=== PATIENT | female | born 1960 | race Caucasian/White ===

== ENCOUNTER → 2018-06-19 | Outpatient (CLI) | payer BC ==
--- NOTE | 2018-06-19 14:37 | P.GSHP ---
History of Present Illness H&P Date: 06/19/18 Patient presents status post cyst evaluation via radiology. Upon evaluation by Dr. Alicia the lesion in the right breast at 10:00 was felt to be best followed with 6 month follow-up. The lesion at 9:00 was aspirated and the cytology was benign. The lesion in the left breast at 12:00 is going to be followed as 6 months. The patient is doing well at this time. She has no complaints related to the aspiration. Physical exam: Evaluation of the breast does not reveal any evidence of infection or hematoma at the site of aspiration Impression: Persistent breast changes Plan: Bilateral breast ultrasound in 6 months with physician exam at that time CC: Dr. Glover Medications and Allergies Home Medications Medication Instructions Recorded Confirmed Type ALPRAZolam [Xanax] 0.25 mg PO DAILY PRN 06/19/18 06/19/18 History Albuterol Inhaler [Ventolin Hfa 1 - 2 puff INHALATION RT-Q6H PRN 06/19/18 History Inhaler] Ascorbic Acid [Vitamin C] 500 mg PO DAILY 06/19/18 06/19/18 History Aspirin [Adult Low Dose Aspirin EC] 81 mg PO QAM 06/19/18 06/19/18 History HYDROcodone/APAP 10-325MG [[place] 1 tab PO Q6HR PRN 06/19/18 06/19/18 History 10-325] Multivitamins, Thera [Multivitamin 1 tab PO DAILY 06/19/18 06/19/18 History (formulary)] Zafirlukast [Accolate] 20 mg PO BID 06/19/18 06/19/18 History amLODIPine [Norvasc] 10 mg PO QAM 06/19/18 06/19/18 History diphenhydrAMINE HCL [Benadryl] 25 mg PO QAM 06/19/18 06/19/18 History Allergies Allergy/AdvReac Type Severity Reaction Status Date / Time Tetanus Vaccines and Toxoid AdvReac Unknown Unverified 06/19/18 14:10 Childhood
[2018-06-19 14:47] VITALS: BP 134/74; PULSE 69; RESP 16; TEMP 98.1; BMI 47.8
--- NOTE | 2018-06-19 15:10 | P.GSHP ---
History of Present Illness H&P Date: 06/19/18 The patient is a 57-year-old female who presents with a routine screening mammogram revealing for new areas of calcification within the right breast. The recommendation is for 2 site stereotactic core biopsy of the anterior and posterior group. The patient herself does not feel any masses or lumps in her breasts. No nipple discharge or skin changes. Family history: 1. Mother breast cancer in her 30s 2. Maternal grandmother breast cancer 3. Father colon cancer of it at 38 Hormonal history: Menarche: 12 Pregnancies: 22 miscarriage. She did not breast-feed and child was born at 26 Menopause colon in her 30s secondary to a total abdominal hysterectomy for endometriosis control pills: 1 year hormones: 6 years Past Surgical History: 1. 2. gallbladder 3. tubal 4. ZAIRE 5. lumbar infusion Past Medical History: 1. Asthma 2. Fibromyalgia 3. Sleep apnea 4. Ischemic colitis 6. Hypertension 7. Anxiety/depression line 8. Osteoarthritis Social history: Smokin packs per week Alcohol: 3-4 times per week Drugs: Negative - Constitutional Constitutional: Denies chills, Denies fever - EENT Comment: needs glasses Ears: deny: decreased hearing, tinnitus Ears, nose, mouth and throat: Reports headache, Denies sore throat - Breasts Breasts: bilateral: as per HPI - Cardiovascular Cardiovascular: Reports high blood pressure, Denies chest pain, Denies shortness of breath - Respiratory Comment: asthma - Gastrointestinal Gastrointestinal: Denies abdominal pain, Denies diarrhea, Denies nausea, Denies vomiting - Genitourinary (Female) Genitourinary: Denies dysuria, Denies hematuria - Menstruation Menstruation: Reports post hysterectomy - Musculoskeletal Comment: osteoarthritis - Integumentary Comment: melanoma removed, skin checks by dermatology - Neurological Neurological: Denies numbness, Denies weakness - Psychiatric Psychiatric: Reports anxiety, Reports depression - Endocrine Endocrine: Reports fatigue, Reports weight change - Hematologic/Lymphatic Comment: bruises easily, aspirin baby/day - Allergic/Immunologic Allergic/Immunologic: Reports seasonal allergies Past Medical History Past Medical History: Asthma, Fibromyalgia, Osteoarthritis (OA) Past Surgical History: Hysterectomy Additional Past Surgical History / Comment(s): carpal tunnel both wrist. lumbar back. gallbladder. Past Anesthesia/Blood Transfusion Reactions: Postoperative Nausea & Vomiting ( PONV) Past Psychological History: Anxiety, Depression Smoking Status: Current some day smoker Past Alcohol Use History: Occasional Past Drug Use History: None Reported Medications and Allergies Home Medications Medication Instructions Recorded Confirmed Type ALPRAZolam [Xanax] 0.25 mg PO DAILY PRN 06/19/18 06/19/18 History Albuterol Inhaler [Ventolin Hfa 1 - 2 puff INHALATION RT-Q6H PRN 06/19/18 History Inhaler] Ascorbic Acid [Vitamin C] 500 mg PO DAILY 06/19/18 06/19/18 History Aspirin [Adult Low Dose Aspirin EC] 81 mg PO QAM 06/19/18 06/19/18 History HYDROcodone/APAP 10-325MG [[place] 1 tab PO Q6HR PRN 06/19/18 06/19/18 History 10-325] Multivitamins, Thera [Multivitamin 1 tab PO DAILY 06/19/18 06/19/18 History (formulary)] Zafirlukast [Accolate] 20 mg PO BID 06/19/18 06/19/18 History amLODIPine [Norvasc] 10 mg PO QAM 06/19/18 06/19/18 History diphenhydrAMINE HCL [Benadryl] 25 mg PO QAM 06/19/18 06/19/18 History Allergies Allergy/AdvReac Type Severity Reaction Status Date / Time Tetanus Vaccines and Toxoid AdvReac Unknown Unverified 06/19/18 14:10 Childhood Surgical - Exam - General obese - ENT no hearing loss, no congestion - Neck no masses, trachea midline - Respiratory normal respiratory effort, clear to auscultation - Cardiovascular Rhythm: regular Heart Sounds: normal: S1, S2 Abnormal Heart Sounds: systolic murmur - Abdomen Abdomen: soft, non tender, no guarding, no rigid, no rebound - Integumentary tattoo - Neurologic no disoriented, no combative - Musculoskeletal normal gait - Psychiatric oriented to time, oriented to person, oriented to place, speech is normal, memory intact Breast examination: Right breast: Positional exam no dominant masses or nodules of concern Right axilla: No adenopathy of concern Left breast: Multiple positional exam no dominant masses or nodules of concern Left axilla: No adenopathy of concern Results Radiographic reports reviewed Assessment and Plan Assessment: Impression/plan: 1. A radiographic abnormality right breast 2 areas which require stereotactic core biopsy 2. History of bruising 3. Osteoarthritis 4. Anxiety/depression 4. Asthma 5. Fibromyalgia Plan: 1. Stereotactic core biopsy of 2 areas of concern and right breast after bruising history addressed with primary care doctor 2. Medical management of medical problems Risk and benefits of surgery to core biopsy discussed with patient and her daughter. They agree and we will schedule in the near future. Cc: Dr. Rox Nguyen
[2018-06-19 16:29] LABS: INR 1.1 (<1.2); Prothrombin Time 10.9 sec (9.0-12.0)
[2018-06-19 16:33] LABS: ALT 83 U/L (9-52); AST 121 U/L (14-36); Alkaline Phosphatase 134 U/L (38-126); Anion Gap 7 mmol/L; Blood Urea Nitrogen 15 mg/dL (7-17); Calcium 9.3 mg/dL (8.4-10.2); Carbon Dioxide 28 mmol/L (22-30); Chloride 105 mmol/L (98-107); Glucose 95 mg/dL (74-99); Potassium 4.6 mmol/L (3.5-5.1); Sodium 140 mmol/L (137-145); Total Bilirubin 0.5 mg/dL (0.2-1.3); Total Protein 7.7 g/dL (6.3-8.2)
[2018-06-19 16:50] LABS: Basophils % (A) 0 %; Eosinophils # (A) 0.2 k/uL (0-0.7); Eosinophils % (A) 3 %; HCT 39.7 % (34.0-46.0); HGB 12.9 gm/dL (11.4-16.0); Lymphocytes # (A) 1.7 k/uL (1.0-4.8); Lymphocytes % (A) 24 %; MCH 29.2 pg (25.0-35.0); MCHC 32.5 g/dL (31.0-37.0); MCV 89.7 fL (80.0-100.0); Mean Platelet Volume 7.2; Monocytes # (A) 0.4 k/uL (0-1.0); Monocytes % (A) 6 %; Neutrophils # (A) 4.5 k/uL (1.3-7.7); Neutrophils % (A) 65 %; Platelet Count 153 k/uL (150-450); RBC 4.42 m/uL (3.80-5.40); RDW 13.2 % (11.5-15.5)
== END | disposition home or self-care (01) ==
LOC: WWCWWP 13:33
PROVIDERS: ATTEND Surgery
DX: M79.81 Nontraumatic hematoma of soft tissue (principal)
CPT/HCPCS: 36415; 80053; 85025; 85610

== ENCOUNTER → 2018-06-25 | Day surgery (SDC) | payer BC ==
[2018-06-25 07:28] VITALS: RESP 16; BMI 45.5
[2018-06-25 10:27] VITALS: BP 147/61; PULSE 71; TEMP 98.3
--- NOTE | 2018-06-25 11:10 | PCN ---
PROCEDURE NOTE PREPROCEDURE DIAGNOSIS: Mammographic abnormality right breast, 4 new groups of calcifications. POSTPROCEDURE DIAGNOSIS: Mammographic abnormality right breast, 4 new groups of calcifications. It should be noted that the patient is a 57-year-old female who underwent a routine screening mammogram. Of significance is the fact that her mother was diagnosed with breast cancer at age 37 and a grandmother at age 62. The patient herself has had prior benign left breast biopsy. The patient underwent a routine screening mammogram and was called back for diagnostic views of the right breast. In the right breast, there were found to be 4 new groups of calcifications. The first was seen at an anterior depth in the central upper right breast at the 12 o'clock position approximately 2 cm from the nipple. It was questionably associated with asymmetry and biopsy was recommended. The second was seen in the central upper right breast at the middle depth 5 to 6 cm from the nipple. This group measured 2 mm and the majority of these were punctate. Third group was seen in the upper outer quadrant of the right breast at the middle depth of 5.7 cm from the nipple, more anterior than the fourth group measured 5 mm. The calcification in this group were also mostly punctate. For these groups, recommendation will be made and radiologic/pathologic correlation of the recommend biopsies. If both groups of the most anterior and posterior group are positive, the patient will likely not be a candidate for breast conservation. If one group is positive, additional biopsies will need to be performed of the other groups. Again, the 4 groups include: 1. The anterior central breast at the 12 o'clock position. 2. Upper central right breast middle depth 6 cm from the nipple. 3. Third group upper outer quadrant, middle depth of 5.7 cm from the nipple. 4. The last group in the upper outer quadrant in the right breast at mid to posterior depth is recommended to undergo biopsy. This group measures 3 mm as pleomorphic and located 8.5 cm from the nipple. The patient was taken to the stereotactic core biopsy unit after physical examination was done. Physical examination multi positional exam of each breast did not demonstrate any dominant mass or nodules of concern in either breast. She was taken to the stereotactic core room after careful evaluation of the mammogram was performed in conjunction with the radiologist. It was recommended we would biopsy the posterior group and the more anterior group at this time. The patient was placed on the stereotactic core biopsy table. The area that was posterior was identified. The skin was prepped using Betadine and the skin was anesthetized using 10 mL of 1% lidocaine. A 9-gauge vacuum assisted core needle biopsy was driven to the correct coordinates. Multiple core biopsies were obtained. Radiograph of the specimen revealed the area of concern had been sampled and a top-hat SecurMark marking clip was left behind. Following this, the area of the anterior breast was identified radiographically. The breast was prepped and the area was anesthetized using 10 mL of 1% lidocaine. The prep was with Betadine. A 9-gauge vacuum assisted needle was driven to the correct coordinates. Multiple core biopsies were obtained and a bow tie TriMark marking clip was left behind. The patient tolerated the procedure in stable condition. The patient will follow up next week for results of the biopsy. The plan is as follows: 1. If both of these areas show malignancy, she will most likely not be a candidate for breast conservation. 2. If 1 area shows malignancy, there were 2 other areas in question in the breast that will most likely be sampled. 3. If no area shows malignancy, we will reconsider following the 2 areas that are additionally seen in the breast and make a decision at that time. MMODL / IJN: [id number] /
--- NOTE | 2018-06-25 12:26 | MM ---
EXAMINATION TYPE: MG stereo VAD BX RT DATE OF EXAM: 06/25/2018 COMPARISON: 06/10/2018, 06/03/2018 outside mammograms CLINICAL HISTORY: Abnormal mammograms, multiple groups of calcifications TECHNIQUE: Stereotactic guided core biopsy of right breast. FINDINGS: The procedure was performed by the surgeon. Targeting was provided by radiology. Case was d iscussed with the surgeon prior to the procedure. The upper outer aspect right breast calcifications were targeted. A discussion regarding which group of calcifications was targeted was performed. A high probability the upper outer posterior-most calci fications were within the targeted window. Procedure was performed by the surgeon. Specimen radiograph is reviewed. There are clustered calcifications within the sample. Adequate sampl e was performed. The subareolar calcifications were targeted by radiology. Procedure was performed by the surgeon. Specimen radiograph is reviewed. Calcifications are within the sample. Adequate sampling was performe d. Postprocedure mammogram: Single lateral view and in the craniocaudal view post procedure mammogram ar e obtained. Core markers appear to be in the expected regions of the biopsied calcifications. IMPRESSION: 1. Successful stereotactic core biopsy 2 groups of calcifications within the right breast. Recommendations: 1. Recommendations are pending pathology results. 2. If pathology results return benign results, reevaluation of 2 additional groups of clustered calci fications is recommended. Additional clustered calcifications which could indicate additional possibl e malignant sites and should be considered in the management. 3. If malignant results at either or both locations are returned by pathology, consideration of possi ble additional malignancy sites should be given. Additional clustered calcifications which could mando katty additional possible malignant sites and should be considered in the management.
== END ==
LOC: RADMAMWWP 06:51
PROVIDERS: ATTEND Surgery
DX: R92.8 Other abnormal and inconclusive findings on diagnostic imaging of breast (principal); Z88.7 Allergy status to serum and vaccine; N60.91 Unspecified benign mammary dysplasia of right breast
CPT/HCPCS: 88305; 88342; 19081; 19082; A4648; J2001; 88341

== ENCOUNTER → 2018-07-03 | Outpatient (CLI) | payer BC ==
[2018-07-03 13:02] VITALS: BMI 47.8
--- NOTE | 2018-07-03 13:17 | P.PN ---
Progress Note - Text Progress Note Date: 07/03/18 The patient is a 57-year-old female status post stereotactic core biopsy of 2 areas of concern in the right breast. The first area revealed a lobular neoplasia atypical lobular hyperplasia/usual LCIS and the second area revealed a proliferative lesion without atypia including an intraductal papilloma. The patient had 4 areas initially of concern in the right breast and after review with the radiologist it is recommended that she undergo stereotactic biopsy of the 2 additional areas in the breast. Following this it will be recommended that she undergo needle localization and excision of the area of atypia most likely the intraductal papilloma. The patient at this time complains of some ecchymosis at the site of her biopsy. Physical exam: Examination of the stereotactic core biopsy sites reveals some mild ecchymosis and a small hematoma at the periareolar site No evidence of any infection Impression/plan: 1. 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 Patient has 2 additional areas for which stereotactic core biopsy is recommended this is been reviewed with radiology and they have suggested that we wait for 3-4 weeks secondary to some changes in the breast related to her prior stereo biopsy. 3. Stereotactic core biopsy of 2 areas of concern in the right breast in approximately 4 weeks 4. Needle localization and excisional biopsy of the atypical lobular hyperplasia and the intraductal papilloma further recommendation of the 2 additional areas after stereotactic core biopsy Cc: Dr. Nguyen
== END | disposition home or self-care (01) ==
LOC: WWCWWP 12:44
PROVIDERS: ATTEND Surgery
DX: Z53.9 Procedure and treatment not carried out, unspecified reason (principal)

== ENCOUNTER → 2018-07-24 | Day surgery (SDC) | payer BC ==
[2018-07-24 07:25] VITALS: RESP 16; BMI 48.8
--- NOTE | 2018-07-24 10:16 | PCN ---
PROCEDURE NOTE The patient is a 57-year-old female who is status post stereotactic core biopsy of 2 areas of concern in the right breast. Pathologically, the first area revealed a lobular neoplasia, atypical lobular hyperplasia/usual LCIS and the second area revealed a proliferative lesion without atypia including an intraductal papilloma. Review of her radiographs revealed two additional areas of concern. The first area was posterior to the nipple in the central breast and the second area was in the upper outer quadrant of the breast. This is in the right breast. Radiographs were reviewed in detail with the radiologist. On physical examination, the patient had no dominant masses or nodules of concern in her breast prior to the stereo biopsies. Following the first stereo biopsy, she did have a small area of ecchymosis which is largely resolved at this time. The patient's first area that we approached for stereotactic biopsy was in the posterior nipple central breast in the right breast. The patient was taken to the stereotactic core biopsy unit and the area of concern was localized. This was clearly seen on our activities director scouting films. Stereo pair films were obtained. The approach was CC from above. The skin was prepped using Betadine. A 10 mL of 1% lidocaine were used to anesthetize the area of concern and a second milliliter of 10 mL of 1% lidocaine with bicarb was placed such that it would be suctioned into the area we were working during the procedure. After the area was targeted, the needle was driven to the correct coordinates. This was a 9-gauge vacuum-assisted core biopsy needle. The prefire films identified this to be in the correct location. Postfire films were obtained and appeared to be in the correct location. Approximately 12 core biopsy specimens were obtained. Radiograph of the specimen revealed that the area of concern had been sampled. A SecurMark top-hat mender was placed. The specimen was sent to pathology and the patient was positioned for the second lesion to be biopsied. The second area was in the upper outer quadrant region. This was correctly identified radiographically. This was clearly seen on the activities director scouting film. Stereotactic stereo pairs were obtained and the breast was prepped in a sterile fashion using Betadine and 1% lidocaine without epinephrine was used to anesthetize the skin. Approximately 10 mL were utilized. Approximately 10 mL of 1% lidocaine with epinephrine was then used to be injected during the procedure as the procedure took place. The needle was driven to the correct targets. This was a 9-gauge vacuum-assisted core biopsy needle and prefire films were obtained and noted to be in the correct location. Following this, the needle was fired and postfire films also revealed this to be in the correct location. Approximately 12 core biopsies were obtained. Radiograph of the specimen revealed the area of concern had been removed. This was confirmed by seeing microcalcifications in the specimen. A TriMark barbell shaped marker was placed. Confirmation that the markers were in the correct location was obtained postprocedure. The patient tolerated the procedure in stable condition with no immediate postoperative complications. Specimens were sent for pathologic evaluation. The patient will follow up Dr. Middleton in 1 week. MMODL / IJN: [id number] /
--- NOTE | 2018-07-24 10:16 | PCN ---
PROCEDURE NOTE ADDENDUM: Please note that the second lesion which was sampled in the upper outer quadrant of the right breast on 07/24/2018 was approached from a CC from above approach. Again, radiographs were reviewed with the radiologist before either of these lesions were targeted and the breast on physical examination had no dominant masses or nodules of concern. Risks and benefits of procedure were clearly discussed with the patient as well as any alternative options. The patient understood and agreed to the procedure. MMODL / IJN: [id number] /
[2018-07-24 10:33] VITALS: BP 128/65; PULSE 73; TEMP 99
--- NOTE | 2018-07-24 12:35 | MM ---
Stereotactic core biopsy right breast 2 sites. HISTORY: Microcalcifications. The calcifications in question within the right breast at 2 sites were targeted by the undersigned. The examination was performed by the surgeon. Specimen radiograph demonstrates numerous calcifications within the specimens submitted. Post procedural mammogram demonstrates appropriate deployment of radiopaque clip markers. The patient tolerated the procedure well and left the department in stable condition. Pathology results are pending. IMPRESSION: Successful stereotactic core biopsy right breast x2 with pathology results pending. Pathology Results: Benign A. RIGHT BREAST SITE A, POSTERIOR NIPPLE CENTRAL, NEEDLE CORE BIOPSIES: [place] intraductal hyperplasia associated with fibrocystic spectrum changes including duct cystic changes, stromal sclerosis, apocrine metaplasia, microscopic intraductal papillomatosis and focal adenosis. Mixed acute and chronic inflammation consistent with prior biopsy. Intraductal mineralization are present. B. RIGHT BREAST, SITE B, UPPER OUTER QUADRANT, NEEDLE CORE BIOPSIES: [place] intraductal hyperplasia and fibrocystic spectrum changes including stromal fibrosis, duct cystic changes with both apocrine and micropapillary changes and focal adenosis. Mixed acute and chronic stromal inflammation is noted. Coarse intraductal mineralizations are identified in block B2. Recommendation Follow mammogram of the right breast in 6 months. MTDD
== END | disposition home or self-care (01) ==
LOC: RADMAMWWP 06:57
PROVIDERS: ATTEND Surgery
DX: N60.21 Fibroadenosis of right breast (principal); N60.81 Other benign mammary dysplasias of right breast; N61.0 Mastitis without abscess; N60.91 Unspecified benign mammary dysplasia of right breast; Z88.7 Allergy status to serum and vaccine; Z91.040 Latex allergy status
CPT/HCPCS: 88305; 19081; 19082; A4648; J2001

== ENCOUNTER → 2018-08-07 | Outpatient (CLI) | payer BC ==
[2018-08-07 10:50] VITALS: BP 131/77; PULSE 76; TEMP 98; BMI 47.8
--- NOTE | 2018-08-07 11:53 | P.GSHP ---
History of Present Illness H&P Date: 08/07/18 The patient is a 57-year-old female who presents with a stereotactic core biopsy of 4 areas of concern in the [place] [address] which was posterior revealed lobular neoplasia ALH/[place] [address] which was near the nipple revealed an intraductal papilloma both of these biopsies were done on 06/25/2018. She subsequently had 2 other areas of the right breast which she underwent stereotactic core biopsy of on 07-24-18 Site A was posterior nipple central and revealed intraductal papillomatosis, and site B was upper outer quadrant and revealed fibrocystic changes. The patient herself prior to the procedure did not feel any masses or lumps in her breasts. Family history: Mother: Breast cancer in her 30's Maternal grandmother: Breast cancer Father: Colon cancer of it at 38 Hormonal history: Menarche: 12 Pregnancies: 2 with one live and one miscarriage, she did not breast feed , regnancy first full-term at 26 Menopause: In her 30s secondary to a total abdominal hysterectomy for endometriosis control pills: 1 year Hormones: 6 years Past surgical history: 1. 2. Cholecystectomy 3. Duplication 4. ZAIRE 5. Lumbar fusion Past medical history: 1. Asthma 2. Fibromyalgia 3. Sleep apnea 4. Ischemic colitis 5. Hypertension 6. Anxiety/depression 7. Osteoarthritis Social history: Smokin packs per week Alcohol: 3-4 times per week Drugs: Negative - Constitutional Constitutional: Denies chills, Denies fever - EENT Comment: needs glasses Ears: left: decreased hearing, tinnitus Ears, nose, mouth and throat: Reports headache, Denies sore throat - Breasts Breasts: bilateral: as per HPI - Cardiovascular Cardiovascular: Reports high blood pressure - Respiratory Respiratory: Reports cough - Gastrointestinal Gastrointestinal: Denies abdominal pain, Denies diarrhea, Denies nausea, Denies vomiting - Genitourinary (Female) Genitourinary: Denies dysuria, Denies hematuria - Menstruation Menstruation: Reports post hysterectomy - Musculoskeletal Comment: arthritis - Integumentary Integumentary: Denies pruritus, Denies rash - Neurological Neurological: Denies numbness, Denies weakness - Psychiatric Psychiatric: Reports anxiety, Reports depression - Endocrine Endocrine: Reports fatigue, Reports weight change - Hematologic/Lymphatic Comment: aspirin - Allergic/Immunologic Allergic/Immunologic: Reports seasonal allergies Past Medical History Past Medical History: Asthma, Fibromyalgia, Hypertension, Osteoarthritis (OA) Additional Past Medical History / Comment(s): Ischemic Colitis. vertigo History of Any Multi-Drug Resistant Organisms: None Reported Past Surgical History: Section, Cholecystectomy, Hysterectomy Additional Past Surgical History / Comment(s): carpal tunnel bilateral wrists. lumbar back surgery. left breast excisional biopsy 2007-benign. cardiac cath- clear 2013 Past Anesthesia/Blood Transfusion Reactions: Postoperative Nausea & Vomiting ( PONV) Past Psychological History: Anxiety, Depression Smoking Status: Current every day smoker Past Alcohol Use History: Occasional Past Drug Use History: None Reported - Past Family History Father Family Medical History: Cancer Additional Family Medical History / Comment(s): Colon. Paternal Grandmother: Diabetes, Heart Failure Mother Family Medical History: Cancer, Congestive Heart Failure (CHF), COPD, Diabetes Mellitus, Hyperlipidemia, Hypertension Additional Family Medical History / Comment(s): Mother: Right Breast Cancer, Emphysema. Maternal Grandmother: Right Breast Cancer and Myocardial Infarction Brother(s) Family Medical History: Diabetes Mellitus, Hypertension Medications and Allergies Home Medications Medication Instructions Recorded Confirmed Type ALPRAZolam [Xanax] 0.25 mg PO DAILY PRN 06/19/18 07/24/18 History Albuterol Inhaler [Ventolin Hfa 1 - 2 puff INHALATION RT-Q6H PRN 06/19/18 History Inhaler] Ascorbic Acid [Vitamin C] 500 mg PO DAILY 06/19/18 08/07/18 History Aspirin [Adult Low Dose Aspirin EC] 81 mg PO QAM 06/19/18 08/07/18 History HYDROcodone/APAP 10-325MG [[place] 1 tab PO Q6HR PRN 06/19/18 08/07/18 History 10-325] Multivitamins, Thera [Multivitamin 1 tab PO DAILY 06/19/18 08/07/18 History (formulary)] Zafirlukast [Accolate] 20 mg PO BID 06/19/18 08/07/18 History amLODIPine [Norvasc] 10 mg PO QAM 06/19/18 08/07/18 History diphenhydrAMINE HCL [Benadryl] 25 mg PO QAM 06/19/18 08/07/18 History FLUoxetine HCL [PROzac] 20 mg PO BID 06/25/18 08/07/18 History Meclizine [Antivert] 25 mg PO DAILY 07/24/18 08/07/18 History Allergies Allergy/AdvReac Type Severity Reaction Status Date / Time latex Allergy Rash/Hives Verified 07/24/18 08:23 Tetanus Vaccines and Toxoid AdvReac Unknown Verified 07/24/18 07:14 Childhood Surgical - Exam Vital Signs Temp Pulse BP Pulse Ox 98 F 76 131/77 95 08/07/18 10:43 08/07/18 10:43 08/07/18 10:43 08/07/18 10:43 BMI 47.9 - General well developed, well nourished, no distress, obese - Eyes normal ocular movement - ENT no hearing loss, no congestion - Neck no masses, trachea midline - Respiratory normal respiratory effort, clear to auscultation - Cardiovascular Rhythm: regular Heart Sounds: normal: S1, S2 - Abdomen Abdomen: soft, non tender, no guarding, no rigid, no rebound - Integumentary no rash - Neurologic no disoriented, no combative - Musculoskeletal normal gait, normal posture - Psychiatric oriented to time, oriented to person, oriented to place, speech is normal, memory intact Breasts: Multiple multiple positional exam no dominant masses or nodules of concern, small hematoma 12 o'clock position related to prior core biopsy Right axilla: No adenopathy of concern Left breast: Exam and on her last appointments no dominant mass or nodules of concern Left axilla: No adenopathy of concern Results Radiographs reviewed Assessment and Plan Assessment: Pressure: 1. Patient with 4 areas of concern noted in her right breast mammogram these were all biopsied via stereotactic core biopsy 2 of these areas are to be localized and excised, these include the right breast site a from 820 318 which was in the posterior location, right breast site B which was near the nipple on that same date additionally the patient underwent biopsies on 920 1 18 the right breast at the posterior nipple area revealed intraductal papillomatosis and if this is in proximity to the first 2 areas this will be removed as well and the final site was in the upper outer quadrant on 920 118 and this will be followed conservatively as it shows fibrocystic change. 2. Asthma 3. Fibromyalgia 4. Sleep apnea 5. History of ischemic colitis 6. Hypertension 7. Anxiety/depression 8. Osteoarthritis Plan: 1. Needle localization right breast with excisional biopsy of 3 areas of concern these include the right breast posterior region, right breast behind the nipple, right breast second area behind the nipple we were not sampling the right breast upper outer quadrant area 2. Medical management of medical problems Patient and her daughter understand the risks and benefits including bleeding and infection reaction to the anesthetic inability to adequately localizer sampled the area and wished to proceed. Secondary to the fact that the patient's mother had breast cancer at an early age we have discussed the possibility of BRCA1 testing. This will be further discussed after open biopsy has been performed. The patient has had a Siobhan model risk assessment analysis withdrawn. The patient's face is between white and , if she is run a Siobhan model analysis as a white race/ethnicity her lifetime risk is 20.5 and 5 year risk is 3.4, if she is run as a his brace/ ethnicity her lifetime risk is 14.7 and her 5 year risk is 2.3 for development of breast cancer. The patient is aware of this and she is going to be followed very closely. Cc: Dr. Rox Nguyen
== END | disposition home or self-care (01) ==
LOC: WWCWWP 09:53
PROVIDERS: ATTEND Surgery
DX: Z53.9 Procedure and treatment not carried out, unspecified reason (principal)

== ENCOUNTER → 2018-08-25 | Day surgery (SDC) | payer BC ==
[2018-08-20 09:42] VITALS: BMI 48.8
[~2018-08-25] MED LIST: ALPRAZolam 0.25 MG TAB PO ONE; DEXAMETHASONE SOD PHOSPHATE 10 MG/ML 1 ML VIAL IV ONE; HEPARIN SODIUM,PORCINE 5,000 UNIT/ML 1 ML VIAL SQ ONE; HYDROcodone/APAP 5-325MG 1 EACH TAB PO ONE; HYDROmorphone (PF) 1 MG/ML ONE; LACTATED RINGERS 1,000 ML IV ONE; LIDOCAINE (PF) 10 MG/ML 2 ML VIAL SQ ONE; LIDOCAINE 1% INJ 10MG/ML (20 ML MDV) ONE; LIDOCAINE 1% INJ 10MG/ML (20 ML MDV) SQ ONE; MIDAZOLAM 2 MG/2 ML VIAL IV ONE; MIDAZOLAM 2 MG/2 ML VIAL ONE; ONDANSETRON 4 MG/2 ML VIAL IVP ONE; PROPOFOL 10 MG/ML 20 ML VIAL IV ONE; Pre Op ABX Message 1 EACH MISC MISCELLANE ONE; SODIUM BICARB 4% 5 ML VIAL (0.48 MEQ/ML) MISCELLANE ONE; SUCCINYLCHOLINE CHLORIDE 100 MG/5 ML SYR IV ONE; ePHEDrine SULFATE/0.9% NACL/PF 50 MG/5 ML SYRINGE IV ONE; fentaNYL (PF) 50 MCG/ML 2 ML AMP ONE
--- NOTE | 2018-08-25 15:07 | P.OP ---
Date of Procedure: 08/25/18 Preoperative Diagnosis: 3 areas on stereotactic core biopsy of concern in the right breast to anterior, and one posterior upper outer quadrant Postoperative Diagnosis: Same Procedure(s) Performed: Needle localization and excisional biopsy of 3 areas of concern in the right breast 2 anterior and one upper outer quadrant posterior lateral Anesthesia: MILTONA Surgeon: Shikha Landin Estimated Blood Loss (ml): 20 IV fluids (ml): 800 Pathology: other (Breast tissue) Condition: stable Disposition: PACU Indications for Procedure: Stereotactic core biopsy revealed areas of concern in the right breast including intraductal papilloma and lobular carcinoma in situ Operative Findings: Fatty breast tissue Description of Procedure: The patient was taken to the operating room and following induction of anesthesia the right breast was prepped and draped in a sterile fashion. An incision was made through which all 3 areas of concern could be removed. The initial area approached was the posterior lateral lesion. The tissue was dissected down to the shaft of the needle and the needle was brought up into the incision. Dissection was performed posterior to the needle and surrounding tissue was excised. This was then carried to the area of the 2 more anterior needles. Jackson were freed at the entrance to the skin and brought into the wound. Wide resection around the needles was performed. After we were assured that hemostasis was attained the wound was well irrigated. The specimen was painted for orientation and sent in 2 separate pieces for radiographic evaluation. All of the clips of concern were removed. After we were assured that hemostasis was attained titanium clips were placed to jacinta the cavity. Deep tissues were closed using 3-0 Vicryl suture. The skin was closed using 4- 0 Monocryl. The posterior dissection in the lateral aspect of the breast was carried out to the pectoralis major muscle posteriorly. The patient tolerated the procedure in stable condition all instrument and sponge counts were correct at the end of the case.
--- NOTE | 2018-08-25 15:09 | P.DS ---
Providers Attending physician: Shikha Landin Primary care physician: Rox Nguyen Plan - Discharge Summary New Discharge Prescriptions: No Action Multivitamins, Thera [Multivitamin (formulary)] 1 tab PO DAILY Ascorbic Acid [Vitamin C] 500 mg PO DAILY Aspirin [Adult Low Dose Aspirin EC] 81 mg PO QAM amLODIPine [Norvasc] 10 mg PO QAM Zafirlukast [Accolate] 20 mg PO BID Albuterol Inhaler [Ventolin Hfa Inhaler] 1 - 2 puff INHALATION RT-Q6H PRN PRN Reason: Allergy Symptoms HYDROcodone/APAP 10-325MG [[place] 10-325] 1 tab PO Q6HR PRN PRN Reason: Pain diphenhydrAMINE HCL [Benadryl] 25 mg PO BID ALPRAZolam [Xanax] 0.25 mg PO DAILY PRN PRN Reason: Anxiety FLUoxetine HCL [PROzac] 20 mg PO BID Meclizine [Antivert] 25 mg PO TID Discharge Medication List ALPRAZolam [Xanax] 0.25 mg PO DAILY PRN 06/19/18 [History] Albuterol Inhaler [Ventolin Hfa Inhaler] 1 - 2 puff INHALATION RT-Q6H PRN [History] Ascorbic Acid [Vitamin C] 500 mg PO DAILY 06/19/18 [History] Aspirin [Adult Low Dose Aspirin EC] 81 mg PO QAM 06/19/18 [History] HYDROcodone/APAP 10-325MG [[place] 10-325] 1 tab PO Q6HR PRN 06/19/18 [History] Multivitamins, Thera [Multivitamin (formulary)] 1 tab PO DAILY 06/19/18 [History ] Zafirlukast [Accolate] 20 mg PO BID 06/19/18 [History] amLODIPine [Norvasc] 10 mg PO QAM 06/19/18 [History] diphenhydrAMINE HCL [Benadryl] 25 mg PO BID 06/19/18 [History] FLUoxetine HCL [PROzac] 20 mg PO BID 06/25/18 [History] Meclizine [Antivert] 25 mg PO TID 07/24/18 [History] Follow up Appointment(s)/Referral(s): Shikha Landin MD [STAFF PHYSICIAN] - 1 Week Activity/Diet/Wound Care/Special Instructions: Do not drive today Do not drive if taking opioid pain medication Patient may shower after 48 hours Wear bra at all times unless in shower Discharge Disposition: HOME SELF-CARE
[2018-08-25 15:53] VITALS: TEMP 98
[2018-08-25] MEDS: HYDROmorphone 1 MG/ML 1 ML SYRINGE IVP ONE ×2 (16:04→16:12)
[2018-08-25 16:28] VITALS: RESP 20
[2018-08-25 17:31] VITALS: BP 159/74; PULSE 88
--- NOTE | 2018-08-26 16:48 | MM ---
EXAMINATION TYPE: MG pre op loc each addl RT, MG surgical specimen RT, MG surgical specimen RT, MG fine rgical specimen RT, MG pre op loc each addl RT, MG pre op needle loc RT DATE OF EXAM: 08/25/2018 COMPARISON: Exams dating back to 06/03/2018 CLINICAL HISTORY: 3 site needle localization of the right breast TECHNIQUE: Needle localization with wire placement and surgical excision of areas of concern in the r ight breast. FINDINGS: The procedure of needle localization with wire placement and than surgical excision was exp lained to the patient. Benefits, alternatives, and risks were discussed. An informed consent was th en obtained. Preprocedural timeout was performed. Site a: The shortest pathway for procedure was chosen to target the most posterior depth biopsy marke r in the upper outer quadrant representing the biopsy-proven ALH/LCIS. Shortest pathway was lateral medial approach. The overlying skin was prepped and draped in usual sterile fashion. Lidocaine buffe red with bicarbonate was used as anesthetic into the skin and subcutaneous tissue up to the level of area of concern. A 7 cm needle was used. It was placed via a lateral medial approach under mammogra phic guidance. Subsequent 90 degrees mammogram show the needle to be in satisfactory position relati ve to the targeted area. At this point, wire was placed and the needle was withdrawn. The wire was fixed to patient's skin. Images were marked for surgeon. 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 Shortest pathway was CC from above approach. The overlying skin was prepped and draped in usual sterile fashion. Lid ocaine buffered with bicarbonate was used as anesthetic into the skin and subcutaneous tissue up to t he level of area of concern. A 5 cm needle was used. It was placed via a CC from above approach und er mammographic guidance. Subsequent 90 degrees mammogram show the needle to be in satisfactory posi tion relative to the targeted area. At this point, wire was placed and the needle was withdrawn. Th e wire was fixed to patient's skin. Images were marked for surgeon. Site c: The shortest pathway for procedure was chosen to target the intraductal papilloma and fibroad enomatoid change. Shortest pathway was CC from above approach. The overlying skin was prepped and dr aped in usual sterile fashion. Lidocaine buffered with bicarbonate was used as anesthetic into the s kin and subcutaneous tissue up to the level of area of concern. A 7 cm needle was used. It was plac ed via a CC from above approach under mammographic guidance. Subsequent 90 degrees mammogram show th e needle to be in satisfactory position relative to the targeted area. At this point, wire was place d and the needle was withdrawn. The wire was fixed to patient's skin. Images were marked for surgeo n. The patient tolerated the procedure well without any immediate complication. The patient was kept in the radiology department for short stay after the procedure and then taken to surgery for surgical e xcision. Targeted biopsy markers and wires are all identified in specimen mammogram. The patient wa s kept in hospital for short stay after the procedure and then discharged home in stable condition. IMPRESSION: Successful, uncomplicated 3 site needle localization with wire placement and surgical exc ision of biopsy markers representing papillomatosis and ALH/LCIS within the right breast, full pathol ogy results to follow. Annual screening MRI could be considered in this patient with history of a hi gh risk lesion.
== END | disposition home or self-care (01) ==
LOC: OR 08:50
PROVIDERS: ATTEND Surgery
DX: N60.11 Diffuse cystic mastopathy of right breast (principal); D24.1 Benign neoplasm of right breast; J44.9 Chronic obstructive pulmonary disease, unspecified; M79.7 Fibromyalgia; G47.33 Obstructive sleep apnea (adult) (pediatric); Z87.19 Personal history of other diseases of the digestive system; Z80.3 Family history of malignant neoplasm of breast; I10 Essential (primary) hypertension; F17.210 Nicotine dependence, cigarettes, uncomplicated; F41.9 Anxiety disorder, unspecified; F32.9 Major depressive disorder, single episode, unspecified; M19.90 Unspecified osteoarthritis, unspecified site; Z80.0 Family history of malignant neoplasm of digestive organs; Z90.710 Acquired absence of both cervix and uterus; Z87.42 Personal history of other diseases of the female genital tract; K76.0 Fatty (change of) liver, not elsewhere classified; Z79.82 Long term (current) use of aspirin; Z79.899 Other long term (current) drug therapy; Z88.7 Allergy status to serum and vaccine; Z91.040 Latex allergy status
CPT/HCPCS: 84132; 76098; 19281; 19282 ×2; 19125; J2250; J2001 ×2; J1644; J1100; J2405; J3010; J1170; J0330; J2704; 88307; 88341; 88342

== ENCOUNTER → 2018-09-04 | Outpatient (CLI) | payer BC ==
[2018-09-04 08:52] VITALS: BP 130/58; PULSE 72; RESP 18; TEMP 98.2; BMI 48.8
--- NOTE | 2018-09-04 09:43 | P.PN ---
Subjective Progress Note Date: 09/04/18 Principal diagnosis: post op breast biopsy Patient is status post right breast needle local excisional biopsy performed . Pathology for 2 sites and the breast posterior and anterior site are benign. She does have some lobular neoplasia lobular carcinoma in situ. The patient has no complaints. Objective - Vital Signs Vital signs: Vital Signs Temp 98.2 F 09/04/18 08:44 Pulse 72 09/04/18 08:44 Resp 18 09/04/18 08:44 BP 130/58 09/04/18 08:44 Pulse Ox 96 09/04/18 08:44 Intake & Output 09/03/18 09/04/18 09/04/18 18:59 06:59 18:59 Weight 113.398 kg - Exam BMI 48.4 - Constitutional General appearance: Present: obese - EENT Eyes: Present: EOMI ENT: Present: hearing grossly normal - Neck Neck: Present: normal ROM - Respiratory Respiratory: bilateral: CTA - Cardiovascular Rhythm: regular Heart sounds: normal: S1, S2 - Gastrointestinal General gastrointestinal: Present: soft - Integumentary Integumentary Comment(s): incision clean and dry - Musculoskeletal Musculoskeletal: Present: gait normal - Psychiatric Psychiatric: Present: A&O x's 3, appropriate affect, intact judgment & insight Assessment and Plan Assessment: Impression/Plan: 1. Patient status post right breast excisional biopsy pathology benign 2. Patient positive family history of mother with premenopausal breast cancer We have discussed possible genetic counseling and the possibility of antiestrogen prophylaxis. At this time the patient wishes to wait until her 6 month follow-up and consider this. 3. Repeat right breast mammogram and physician exam in 6 months time CC: Dr. Nguyen
== END | disposition home or self-care (01) ==
LOC: WWCWWP 08:32
PROVIDERS: ATTEND Surgery
DX: Z53.9 Procedure and treatment not carried out, unspecified reason (principal)

== ENCOUNTER → 2019-03-11 | Outpatient (CLI) | payer BC ==
--- NOTE | 2019-03-11 09:34 | MM ---
Reason for exam: follow-up at short interval from prior study. Last mammogram was performed 9 months ago. History: Patient is postmenopausal and has history of high-risk lesion on a previous biopsy at age 57. Family history of breast cancer in mother at age 37 and breast cancer in maternal grandmother at age 61. High risk MG pre op loc each addl RT of the right breast, August 25, 2018. High risk MG pre op loc each addl RT of the right breast, August 25, 2018. High risk MG pre op needle loc RT of the right breast, August 25, 2018. Benign MG stereo VAD BX addl RT of the right breast, July 24, 2018. Benign MG stereo VAD BX RT of the right breast, July 24, 2018. High risk MG stereo VAD BX addl RT of the right breast, June 25, 2018. High risk MG stereo VAD BX RT of the right breast, June 25, 2018. Took estrogen for 10 years beginning at age 37. Physical Findings: Nurse did not find any significant physical abnormalities on exam. MG Diagnostic Mammo RT w CAD CC, MLO, ML, and XCCL view(s) were taken of the right breast. Prior study comparison: June 10, 2018, mammogram. June 03, 2018, mammogram. January 08, 2014, mammogram. January 13, 2012, mammogram. The breast tissue is heterogeneously dense. This may lower the sensitivity of mammography. Finding: Architectural distortion in the right breast consistent with known lumpectomy. There is a chronic nodularity in the right breast. Benign right axillary lymph nodes redemonstrated. These results were verbally communicated with the patient and result sheet given to the patient on 03/11/19. ASSESSMENT: Benign, BI-RAD 2 RECOMMENDATION: Follow-up diagnostic mammogram of both breasts in 3 months. Back on schedule for June 2019.
--- NOTE | 2019-03-11 10:30 | P.PN ---
Subjective Progress Note Date: 03/11/19 Principal diagnosis: Status post right breast mammogram/ open biopsy August 2018 Ninoska is a 58-year-old female who is status post stereotactic core biopsy for areas of concern in the right breast. The patient had undergone bilateral mammogram 8118. The patient was noted to have a new group of calcifications in the right breast the left breast mammogram was felt to be unchanged from prior mammograms and nonsuspicious. Site A which was done on 820 318 and posterior revealed lobular neoplasia ALH/LCIS, site B done on 8 2318 near the nipple revealed an intraductal papilloma. She subsequently had 2 other areas of the right breast which [place] [address]. Site A was posterior nipple central and revealed intraductal papillomatosis, and site B was upper outer quadrant and revealed fibrocystic changes. The patient subsequently underwent needle localization and open biopsy of 2 sites and the breast the posterior and anterior site were both benign. She does have some lobular carcinoma in situ. The patient returns today for repeat mammogram of the right breast. The repeat mammogram reveals heterogeneously dense breast tissue but no lesions of concern is felt to be benign BIRADS 2 and she will have follow-up bilateral mammogram in 3 months. The patient does not feel anything of concern in her breast. The patient has a strong family history of cancer, we had discussed genetic testing on her prior visits and at this time she is agreeable and with this seen by genetic counselor. The patient does state that she has a pinching sensation at her incision approximately every 2 weeks its transient and intermittent and is not incapacitating for her. Additionally the patient is noted a very small skin lesion in the periareolar border which has changed since her last visit. She is not complaining of any nipple discharge. She has had no trauma to her breast. Family history: Mother: Breast cancer in her 30s Maternal grandmother: Breast cancer Father: Colon cancer dilated 38 History: Menarche: 12 Pregnancies: 2 with one live and one miscarriage, she did not breast-feed, first full-term at 26 Menopause: In her 30s secondary to total abdominal hysterectomy for endometriosis Postoperative control pills: 1 year Hormones: 6 years Past surgical history: 1. 2. Cholecystectomy 3. ZAIRE/BSO 4. Lumbar fusion 5. right breast biopsy 6. bilateral carpel tunnel Past medical history: 1. Asthma 2. Fibromyalgia 3. Sleep apnea. 4. colitis 5. Hypertension 6. Anxiety/depression 7. Osteoarthritis 8. Family history of cancer Smoking history: Smokin packs per week alcohol: 3-4 times per week Drugs: Negative Review of systems: Constitutional: Negative HEENT: Left ear decreased hearing Lungs: Asthma, smoker Heart: Questionable murmur GI:colitis : see HPI Osseous skeletal: Arthritis Integument: Skin lesion near aerola Psychiatric: Anxiety Endocrine: Fatigue Hematologic: Patient takes aspirin Objective - Vital Signs Vital signs: Vital Signs Temp 98.5 F 03/11/19 09:15 Pulse 76 03/11/19 09:15 Resp 18 03/11/19 09:15 BP 178/74 03/11/19 09:15 Pulse Ox 96 03/11/19 09:15 Intake & Output 03/10/19 03/11/19 03/11/19 18:59 06:59 18:59 Weight 114.305 kg - Exam BMI 49.2 - Constitutional General appearance: Present: obese - EENT Eyes: Present: EOMI ENT: Present: hearing grossly normal - Neck Neck: Present: normal ROM - Respiratory Respiratory: bilateral: CTA - Cardiovascular Details: ? BEULAH Rhythm: regular Heart sounds: normal: S1, S2 - Gastrointestinal Gastrointestinal Comment(s): No guarding or rebound Well-healed scar from prior cholecystectomy General gastrointestinal: Present: soft - Integumentary Integumentary Comment(s): Nevus/skin lesion periareolar area right breast approximately 7 mm in size - Musculoskeletal Musculoskeletal: Present: gait normal - Psychiatric Psychiatric: Present: A&O x's 3, appropriate affect Assessment and Plan Assessment: Impression: 1. Fibrocystic breast changes 2. Lobular carcinoma in situ 3. Family history of cancer 4. Fibromyalgia 6. Asthma 7. Colitis 8. Hypertension 9. Anxiety 10. Osteoarthritis 11. Increased risk of breast cancer based on Siobhan model/ risk line as a C aucasian her lifetime risk is 20.5, risk for analysis splenic lifetime risk is 14.7 12. Skin lesion right breast periareolar area 13. Right breast mammogram benign BIRADS 2 [place] [address]. 14. Questionable systolic ejection murmur Plan: 1. Excision of skin lesion right breast 2. Repeat bilateral mammogram in 6 months 3. Appointment with genetic counselor 4. Medical management of medical conditions cc: Dr. Nguyen
[2019-03-11 10:35] VITALS: BP 178/74; PULSE 76; RESP 18; TEMP 98.5; BMI 49.2
== END | disposition home or self-care (01) ==
LOC: RADMAMWWP 08:04
PROVIDERS: ATTEND Surgery
DX: R92.8 Other abnormal and inconclusive findings on diagnostic imaging of breast (principal)
CPT/HCPCS: 77065

== ENCOUNTER → 2019-07-09 | Outpatient (CLI) | payer BC ==
--- NOTE | 2019-07-09 13:40 | MM ---
Reason for exam: additional evaluation requested from prior study. Last mammogram was performed 4 months ago. History: Patient is postmenopausal and has history of high-risk lesion on a previous biopsy at age 57. Family history of breast cancer in mother at age 37 and breast cancer in maternal grandmother at age 61. High risk MG pre op loc each addl RT of the right breast, August 25, 2018. High risk MG pre op loc each addl RT of the right breast, August 25, 2018. High risk MG pre op needle loc RT of the right breast, August 25, 2018. Benign MG stereo VAD BX addl RT of the right breast, July 24, 2018. Benign MG stereo VAD BX RT of the right breast, July 24, 2018. High risk MG stereo VAD BX addl RT of the right breast, June 25, 2018. High risk MG stereo VAD BX RT of the right breast, June 25, 2018. Took estrogen for 10 years beginning at age 37. Physical Findings: Nurse did not find any significant physical abnormalities on exam. MG Diagnostic Mammo w CAD REBECCA Bilateral CC, MLO, and XCCL view(s) were taken. Prior study comparison: March 11, 2019, right breast MG diagnostic mammo RT w CAD. June 10, 2018, mammogram. There are scattered fibroglandular densities. No suspicious abnormality. Right post surgical change. No significant new findings when compared with previous films. These results were verbally communicated with the patient and result sheet given to the patient on 07/09/19. ASSESSMENT: Benign, BI-RAD 2 RECOMMENDATION: Routine screening mammogram of both breasts in 1 year.
== END | disposition home or self-care (01) ==
LOC: RADMAMWWP 12:33
PROVIDERS: ATTEND Surgery
DX: R92.8 Other abnormal and inconclusive findings on diagnostic imaging of breast (principal)
CPT/HCPCS: 77066

== ENCOUNTER → 2022-11-15 | Day surgery (SDC) | payer BC | LOC: RADUSWWP 10:00 | PROVIDERS: ATTEND Surgery | DX: C50.912 Malignant neoplasm of unspecified site of left female breast (principal); Z17.0 Estrogen receptor positive status [ER+] | CPT/HCPCS: 77065; 19083; A4648; 88305; 88341; 88342 ==

== ENCOUNTER → 2022-11-22 | Outpatient (CLI) | payer BC ==
--- NOTE | 2022-11-22 11:20 | P.PN ---
Subjective Progress Note Date: 11/22/22 Ninoska is a 61-year-old female who is status post stereotactic core biopsy of the right breast in 2018 of approximately 4 sites. She was noted to have atypical lobular hyperplasia/lobular carcinoma in situ. She subsequently underwent a lumpectomy in the operating room on 08-25-18. At the time of the lumpectomy the right breast posterior/lateral lesion revealed focal lobular neoplasia involving complex sclerosing lesion/radial scar. Additionally to the anterior needles were placed and an excision of that site revealed focal lobular neoplasia as well. 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 No invasive ductal carcinoma was identified. The patient in approximately July 2022 noted a lump in her left breast. She underwent a bilateral mammogram on 10-23-22, this did not show any lesions of concern in the right breast however a spiculated mass was noted in the left breast and ultrasound was recommended. The ultrasound was performed on [id number]. This revealed a 2.1 x 1.7 cm lesion for which core biopsy was recommended. This did reveal an invasive ductal carcinoma grade 2. This is ER/HI positive HER-2/perla negative. caffeine:tea in the am nicotine: 1/2 PPD; smoking for 44 years chocolate: weekly BCP: 2 years hormones: 10 years not using them now Family history: Mother: Breast cancer in her 30s Maternal grandmother: Breast cancer Father: Colon cancer at 38 History: Menarche: 12 Pregnancies: 2 with one live and one miscarriage, she did not breast-feed, first full-term at 26 Menopause: In her 30s secondary to total abdominal hysterectomy for endometriosis; at 37 both ovaries removed Postoperative control pills: 2 year Hormones: 10 years surgical history: 1. 2. Cholecystectomy 3. ZAIRE/BSO 4. Lumbar fusion 5. right breast biopsy 6. bilateral carpel tunnel 7. left ankle Past medical history: 1. Asthma 2. Fibromyalgia 3. Sleep apnea. 4. colitis 5. Hypertension 6. Anxiety/depression 7. Osteoarthritis Smoking history: Smokin packs per week alcohol: 3-4 times per week Drugs: Negative Review of systems: Constitutional: Negative HEENT: Left ear decreased hearing, blurred vision Lungs: Asthma, smoker Heart: Questionable murmur GI:colitis : see HPI Osseous skeletal: Arthritis Integument: WNL Psychiatric: Anxiety/depression Endocrine: Fatigue Hematologic: Patient takes aspirin Objective - Constitutional General appearance: Present: cooperative - EENT Eyes: Present: EOMI ENT: Present: hearing grossly normal - Neck Neck: Present: normal ROM - Respiratory Respiratory: bilateral: CTA - Cardiovascular Heart sounds: normal: S1, S2 Abnormal Heart Sounds: Present: systolic murmur - Gastrointestinal General gastrointestinal: Present: soft - Integumentary Integumentary: Present: normal turgor - Musculoskeletal Musculoskeletal Comment(s): uses a wheel chair, severe osteoarthritis - Psychiatric Psychiatric: Present: A&O x's 3, appropriate affect, intact judgment & insight - Additional findings Additional findings: Breast Exam: BRA: 44C Inspection: bilateral grade 2/3 ptosis; healed scar right breast from prior surgery palpation: right breast: Patient examined sitting in chair as it is difficult for her to climb to the exam table secondary to knee pain exam fibrocystic changes no dominant masses or nodules of concern well-healed scar from prior surgery Right axilla: No adenopathy of concern Left breast: Patient examined sitting in chair at approximately the 12:30 position there is about a 2 cm area of firmness which is consistent with that which was biopsied and consistent with invasive ductal carcinoma no other dominant masses or nodules of concern Left axilla: No adenopathy of concern Assessment and Plan Assessment: Impression: 1. Asthma 2. Fibromyalgia 3. Sleep apnea. 4. colitis 5. Hypertension 6. Anxiety/depression 7. Osteoarthritis 8. T2 N0 M0 G2 ER/HI positive HER-2/perla negative invasive ductal carcinoma left breast Plan: Presentation of case at tumor board Probable needle localization left breast lumpectomy and sentinel node biopsy, undergo plastic tissue transfer Oncotype of the tumor CC: Dr. Nguyen
== END ==
LOC: WWCWWP 10:55
PROVIDERS: ATTEND Surgery
DX: Z85.3 Personal history of malignant neoplasm of breast (principal); J45.909 Unspecified asthma, uncomplicated; M79.7 Fibromyalgia; I10 Essential (primary) hypertension; G47.9 Sleep disorder, unspecified; F32.A Depression, unspecified; M19.90 Unspecified osteoarthritis, unspecified site; K52.9 Noninfective gastroenteritis and colitis, unspecified; Z17.0 Estrogen receptor positive status [ER+]; Z91.040 Latex allergy status; Z88.7 Allergy status to serum and vaccine; F17.200 Nicotine dependence, unspecified, uncomplicated

== ENCOUNTER → 2023-01-31 | Outpatient (CLI) | payer BC ==
[2023-01-31 08:39] VITALS: BP 118/69; PULSE 60; RESP 17; TEMP 98.7
--- NOTE | 2023-01-31 09:05 | P.PN ---
Progress Note - Text Progress Note Date: 01/31/23 Ninoska is a 62-year-old white female status post [place] [id number]. 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 On initial specimen the posterior medial margins were positive. The patient had reexcision of medial and posterior margins which were negative. She did also have some DCIS. Margins were negative for DCIS. 5 lymph nodes were removed to were positive for cancer. [place] [id number]. The patient was recommended to undergo adjuvant chemotherapy with standard dose Adriamycin and Cytoxan followed by dose dense Taxol. The patient is also recommended to undergo radiation therapy as we ll as hormonal therapy. Given her normal involvement a PET scan was ordered. This is scheduled for the seventh. She is scheduled to see radiation oncology but she is going to have chemotherapy prior to this so that has been delayed. She is complaining of some fullness in her breast and is wondering if a seroma is present. She is not complaining of any fever or chills. lungs: clear Heart: S1-S2 systolic ejection murmur Incision axilla clean and dry Incision breast clean and dry Fullness of the breast with some mild superficial skin erythema We have discussed possible aspiration of the seroma the patient has agreed. Following informed consent the area of concern was prepped using alcohol. A 20 mL syringe with an 18-gauge needle was inserted into the area of concern. 240 mL of serous fluid was removed. The patient stated the fullness felt improved. Impression: Patient doing well postoperatively; seroma present and aspirated Prophylactic antibiotic will be given Keflex, 500 mg 1 by mouth 4 times a day for 5 days Plan: Follow up next week for evaluation Follow-up medical oncology Follow-up radiation oncology CC: Dr. Nguyen
== END ==
LOC: WWCWWP 08:27
PROVIDERS: ATTEND Surgery
DX: Z85.3 Personal history of malignant neoplasm of breast (principal); L76.34 Postprocedural seroma of skin and subcutaneous tissue following other procedure; Z88.1 Allergy status to other antibiotic agents; Z91.040 Latex allergy status; Z88.7 Allergy status to serum and vaccine; F17.200 Nicotine dependence, unspecified, uncomplicated

== ENCOUNTER → 2023-02-07 | Outpatient (CLI) | payer BC ==
--- NOTE | 2023-02-07 17:09 | CA ---
Transthoracic Echo Report Name: Ninoska Stovall Age: 62 Gender: F : 1960 Exam Date: 02/07/2023 13:04 Exam Location: [facility] Ht (in): 59 Wt (lb): 255 Ordering Physician: Mario Alberto Mcclellan MD Attending/Referring Phys: [employer] Machine Operator Wallace Britton RDCS Procedure CPT: Indications: Z01.818 Cardiac Hx: HTN; Technical Quality: Fair Contrast 1: Total Dose (mL): Contrast 2: Total Dose (mL): MEASUREMENTS (Male / Female) Normal Values 2D ECHO LV Diastolic Diameter PLAX 5.8 cm 4.2 - 5.9 / 3.9 - 5.3 cm LV Systolic Diameter PLAX 4.2 cm LV Fractional Shortening PLAX 27.8 % IVS Diastolic Thickness 1.3 cm 0.6 - 1.0 / 0.6 - 0.9 cm IVS Systolic Thickness 2.1 cm LVPW Diastolic Thickness 1.2 cm 0.6 - 1.0 / 0.6 - 0.9 cm LVPW Systolic Thickness 1.6 cm LV Relative Wall Thickness 0.4 RV Internal Dim ED PLAX 3.3 cm LVOT Diameter 2.0 cm LA Systolic Diameter LX 4.5 cm 3.0 - 4.0 / 2.7 - 3.8 cm LV Diastolic Volume MOD BP 89.7 cm??? 67 - 155 / 56 - 104 cm??? LV Systolic Volume MOD BP 39.6 cm??? 22 - 58 / 19 - 49 cm??? LV Ejection Fraction MOD BP 55.9 % >= 55 % LV Stroke Volume MOD BP 50.1 cm??? LV Diastolic Volume MOD 4C 92.5 cm??? LV Systolic Volume MOD 4C 50.8 cm??? LV Ejection Fraction MOD 4C 45.1 % LV Stroke Volume MOD 4C 41.7 cm??? LV Diastolic Length 4C 7.2 cm LV Systolic Length 4C 6.4 cm LV Diastolic Volume MOD 2C 82.9 cm??? LV Systolic Volume MOD 2C 31.1 cm??? LV Ejection Fraction MOD 2C 62.5 % LV Stroke Volume MOD 2C 51.8 cm??? LV Diastolic Length 2C 8.0 cm LV Systolic Length 2C 6.7 cm Ascending Aorta Diameter 2.9 cm M-MODE Aortic Root Diameter MM 3.2 cm LA Systolic Diameter MM 4.7 cm LA Ao Ratio MM 1.5 AV Cusp Separation MM 1.4 cm DOPPLER AV Peak Velocity 257.8 cm/s AV Peak Gradient 26.6 mmHg AV Mean Velocity 158.7 cm/s AV Mean Gradient 12.1 mmHg AV Velocity Time Integral 58.6 cm LVOT Peak Velocity 173.0 cm/s LVOT Peak Gradient 12.0 mmHg LVOT Mean Velocity 115.6 cm/s LVOT Mean Gradient 6.6 mmHg LVOT Velocity Time Integral 47.5 cm LVOT Stroke Volume 155.4 cm??? LVOT Stroke Volume Index 76.0 ml/m??? AV Area Cont Eq vti 2.7 cm??? AV Area Cont Eq pk 2.2 cm??? MV Peak Velocity 452.3 cm/s MV Peak Gradient 81.8 mmHg MV Mean Velocity 320.8 cm/s MV Mean Gradient 47.7 mmHg MV Velocity Time Integral 125.8 cm MV Deceleration [place] 384.7 cm/s??? MR Peak Velocity 483.0 cm/s MR Peak Gradient 93.3 mmHg Mitral E Point Velocity 149.7 cm/s Mitral A Point Velocity 112.0 cm/s Mitral E to A Ratio 1.3 MV Deceleration Time 389.1 ms MV E' Velocity 6.2 cm/s Mitral E to MV E' Ratio 24.3 TR Peak Velocity 257.7 cm/s TR Peak Gradient 26.6 mmHg Right Ventricular Systolic Press 34.6 mmHg PV Peak Velocity 124.9 cm/s PV Peak Gradient 6.2 mmHg FINDINGS Left Ventricle Left ventricular ejection fraction is estimated at 50-55 %. Mild concentric left ventricular hypertrophy. Grade 2 diastolic dysfunction. Right Ventricle Normal right ventricular size and function. RVSP-35 mm Hg. Right Atrium Mild right atrial dilatation. Left Atrium Left atrial dilatation. Mitral Valve Mitral valve thickened. Mild thickening/calcification of the anterior mitral valve leaflet. Moderate thickening/calcification of the posterior mitral valve leaflet. [id number] mitral stenosis. Moderate mitral regurgitation. Aortic Valve Trileaflet aortic valve. Diffuse thickening (sclerosis) of the aortic valve cusps without reduced excursion. Mild aortic stenosis with a peak gradient of 26.6 mmHg and a mean gradient of 12.1 mmHg. AV max- 2.68m/s; Tricuspid Valve Mild tricuspid regurgitation. Pulmonic Valve Pulmonic valve not well visualized.PV max- 1.24 m/sec. Pericardium Normal pericardium. No pericardial effusion. Aorta Normal size aortic root and proximal ascending aorta. CONCLUSIONS This is a poor quality technically suboptimal study Concentric left ventricular hypertrophy with normal LV function Mitral annular calcification with moderate mitral regurgitation and mild to moderate mitral stenosis Mild tricuspid regurgitation Previewed by: Dr. Jadiel Ko MD (Electronically Signed) Final Date: 07 February 2023 17:08
== END | disposition home or self-care (01) ==
LOC: RADECHMAIN 12:29
PROVIDERS: ATTEND Internal Medicine Hematology & Oncology
DX: Z01.818 Encounter for other preprocedural examination (principal); I08.1 Rheumatic disorders of both mitral and tricuspid valves
CPT/HCPCS: 93306

== ENCOUNTER → 2023-02-07 | Outpatient (CLI) | payer BC ==
--- NOTE | 2023-02-07 12:15 | P.PN ---
Progress Note - Text Progress Note Date: 02/07/23 Ninoska is a 62-year-old white female status post left breast lumpectomy and sentinel node biopsy on . 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 On initial specimen the posterior medial margins were positive. The patient had reexcision of medial and posterior margins which were negative. She did also have some DCIS. Margins were negative for DCIS. 5 lymph nodes were removed two were positive for cancer. [place] [id number]. The patient was recommended to undergo adjuvant chemotherapy with standard dose Adriamycin and Cytoxan followed by dose dense Taxol. The patient is also recommended to undergo radiation therapy as well as hormonal therapy. Given her minnie involvement a PET scan was ordered. This is has been scheduled. She is scheduled to see radiation oncology but she is going to have chemotherapy prior to this so that has been delayed. The seroma was aspirated on her last visit 240 mL of serous fluid was removed. On today's visit she complains of some fullness again in the breast. lungs: clear Heart: S1-S2 systolic ejection murmur Incision axilla clean and dry Incision breast clean and dry decreased fullness of the breast with some mild superficial skin erythema We have discussed possible aspiration of the seroma the patient has agreed. Following informed consent the area of concern was prepped using alcohol. A 20 mL syringe with an 18-gauge needle was inserted into the area of concern. 8 mL of ser-sangenous fluid was removed. Impression: Patient doing well postoperatively; small seroma aspirated Prophylactic antibiotic will be given Keflex, 500 mg 1 by mouth 4 times a day for 5 days Plan: Follow up next week for evaluation Follow-up medical oncology Follow-up radiation oncology CC: Dr. Nguyen
[2023-02-07 12:24] VITALS: BP 147/62; PULSE 58; RESP 18; TEMP 97.9
== END ==
LOC: WWCWWP 11:29
PROVIDERS: ATTEND Surgery
DX: R92.8 Other abnormal and inconclusive findings on diagnostic imaging of breast (principal); Z29.13 Encounter for prophylactic Rho(D) immune globulin; Z91.040 Latex allergy status; Z88.7 Allergy status to serum and vaccine; F17.210 Nicotine dependence, cigarettes, uncomplicated

== ENCOUNTER 2023-02-17 13:45 | Emergency (ER) | payer BC ==
--- NOTE | 2023-02-17 14:54 | XR ---
EXAMINATION TYPE: XR chest 2V DATE OF EXAM: 02/17/2023 COMPARISON: NONE HISTORY: Shortness of breath TECHNIQUE: Frontal and lateral views of the chest are obtained. FINDINGS: Scattered senescent parenchymal changes noted. Hyperinflation compatible with COPD. No evidence for infiltrate. No evidence for atelectasis. Heart size is stable. Pulmonary venous congestion without evidence for overt failure. Mediastinal structures are stable and grossly unremarkable. No evidence for hilar prominence. Degenerative changes dorsal spine. IMPRESSION: 1. No evidence for acute pulmonary disease.
[2023-02-17 14:57] LABS: Basophils % (A) 0 %; Eosinophils # (A) 0.1 k/uL (0-0.7); Eosinophils % (A) 3 %; HCT 36.1 % (34.0-46.0); HGB 12.4 gm/dL (11.4-16.0); Lymphocytes % (A) 27 %; MCH 30.6 pg (25.0-35.0); MCHC 34.4 g/dL (31.0-37.0); MCV 89.1 fL (80.0-100.0); Mean Platelet Volume 8.5; Monocytes # (A) 0.3 k/uL (0-1.0); Monocytes % (A) 7 %; Neutrophils # (A) 2.3 k/uL (1.3-7.7); Neutrophils % (A) 61 %; RBC 4.05 m/uL (3.80-5.40); RDW 13.1 % (11.5-15.5); WBC 3.8 k/uL (3.8-10.6)
[2023-02-17 15:01] LABS: INR 1.1 (<1.2); Partial Thromboplastin Time 25.7 sec (22.0-30.0); Prothrombin Time 11.7 sec (9.0-12.0)
[2023-02-17 15:18] LABS: ALT 28 U/L (4-34); AST 48 U/L (14-36); African American GFR (CKD) >90 (>60 ml/min/1.73 sqM); Albumin 3.3 g/dL (3.5-5.0); Alkaline Phosphatase 138 U/L (38-126); Anion Gap 8 mmol/L; Blood Urea Nitrogen 14 mg/dL (7-17); Calcium 8.6 mg/dL (8.4-10.2); Carbon Dioxide 27 mmol/L (22-30); Chloride 102 mmol/L (98-107); Glucose 101 mg/dL (74-99); Non-African American GFR(CKD) >90 (>60 ml/min/1.73 sqM); Potassium 3.6 mmol/L (3.5-5.1); Sodium 137 mmol/L (137-145); Total Bilirubin 0.8 mg/dL (0.2-1.3); Total Protein 6.8 g/dL (6.3-8.2)
[2023-02-17 15:32] LABS: Platelet Count 86 k/uL (150-450)
[2023-02-17 15:33] LABS: RBC Morphology Normal
--- NOTE | 2023-02-17 16:36 | ED ---
SOB HPI - General Chief Complaint: Shortness of Breath Stated Complaint: sob Time Seen by Provider: 02/17/23 15:01 Source: patient Mode of arrival: ambulatory Limitations: no limitations - History of Present Illness Initial Comments: Patient is a 62-year-old female presenting with chief complaint of shortness of breath. Symptoms have been ongoing for last 3 days. Patient admits to chest tightness and productive cough. Patient had breast lumpectomy performed on 01/28/23. Patient does have history of asthma, however her albuterol inhalers have not been helping. Patient has been taking Lasix, states that she has been retaining a lot of fluid and has had swelling to the lower extremities and in the hands. No fevers or chills. No abdominal pain, nausea, vomiting. - Related Data Home Medications Medication Instructions Recorded Confirmed ALPRAZolam [Xanax] 0.25 mg PO DAILY PRN 06/19/18 02/17/23 Aspirin [Adult Low Dose Aspirin EC] 81 mg PO DAILY 06/19/18 02/17/23 Zafirlukast [Accolate] 20 mg PO BID 06/19/18 02/17/23 FLUoxetine HCL [PROzac] 20 mg PO BID 06/25/18 02/17/23 HYDROcodone/APAP 7.5-325MG [[place] 1 tab PO Q6HR PRN 11/08/22 02/17/23 7.5-325] Cyclobenzaprine [Flexeril] 5 mg PO HS 12/25/22 02/17/23 Losartan Potassium 100 mg PO DAILY 12/25/22 02/17/23 hydroCHLOROthiazide [Hydrodiuril] 25 mg PO DAILY 12/25/22 02/17/23 Cetirizine HCl [Zyrtec] 10 mg PO DAILY 12/31/22 02/17/23 Albuterol Inhaler [Ventolin Hfa 1 - 2 puff INHALATION RT-Q6H PRN 02/17/23 02/17/23 Inhaler] Furosemide [Lasix] 20 mg PO DAILY PRN 02/17/23 02/17/23 Allergies Allergy/AdvReac Type Severity Reaction Status Date / Time latex Allergy Rash/Hives Verified 02/17/23 15:16 Tetanus Vaccines and Toxoid AdvReac Unknown Verified 02/17/23 15:16 Childhood Review of Systems ROS Statement: Those systems with pertinent positive or pertinent negative responses have been documented in the HPI. ROS Other: All systems not noted in ROS Statement are negative. Past Medical History Past Medical History: Asthma, Cancer, Fibromyalgia, Hypertension, Osteoarthritis (OA), Sleep Apnea/CPAP/BIPAP Additional Past Medical History / Comment(s): Ischemic Colitis. vertigo intermittent. uses cpap. breast cancer-left History of Any Multi-Drug Resistant Organisms: None Reported Past Surgical History: Breast Surgery, Section, Cholecystectomy, Hysterectomy Additional Past Surgical History / Comment(s): carpal tunnel bilateral wrists. lumbar back surgery. right breast excisional biopsy 2007-benign. cardiac cath-clear 2013. Heel spur surgery June 2021 Past Anesthesia/Blood Transfusion Reactions: Postoperative Nausea & Vomiting (PONV) Additional Past Anesthesia/Blood Transfusion Reaction / Comment(s): mild Past Psychological History: Anxiety, Depression Smoking Status: Current every day smoker Past Alcohol Use History: Occasional Past Drug Use History: None Reported - Past Family History Father Family Medical History: Cancer Additional Family Medical History / Comment(s): Colon. Paternal Grandmother: Diabetes, Heart Failure Mother Family Medical History: Cancer, Congestive Heart Failure (CHF), COPD, Diabetes Mellitus, Hyperlipidemia, Hypertension Additional Family Medical History / Comment(s): Mother: Right Breast Cancer, Emphysema. Maternal Grandmother: Right Breast Cancer and Myocardial Infarction Brother(s) Family Medical History: Diabetes Mellitus, Hypertension General Exam Limitations: no limitations General appearance: alert, in no apparent distress Head exam: Present: atraumatic, normocephalic, normal inspection Eye exam: Present: normal appearance, EOMI. Absent: periorbital swelling, periorbital tenderness Neck exam: Present: normal inspection, full ROM Respiratory exam: Present: normal lung sounds bilaterally. Absent: respiratory distress, wheezes, rales, rhonchi, stridor Cardiovascular Exam: Present: regular rate, normal rhythm, normal heart sounds. Absent: systolic murmur, diastolic murmur, rubs, gallop, clicks Neurological exam: Present: alert, oriented X3, CN II-XII intact Psychiatric exam: Present: normal affect, normal mood Skin exam: Present: warm, dry, intact, normal color. Absent: rash Course Vital Signs 02/17/23 02/17/23 13:47 18:00 Temperature 98 F 98.7 F Pulse Rate 65 78 Respiratory 28 H 18 Rate Blood Pressure 179/69 164/75 O2 Sat by Pulse 99 95 Oximetry Medical Decision Making - Medical Decision Making Was pt. sent in by a medical professional or institution ([facility] Jeong, [facility], urgent care, hospital, or retirement...) When possible be specific @ -No Did you speak to anyone other than the patient for history (EMS, parent, family, police, friend...)? What history was obtained from this source @ -No Did you review nursing and triage notes (agree or disagree)? Why? @ -I reviewed and agree with nursing and triage notes Were old charts reviewed (outside hosp., previous admission, EMS record, old EKG, old radiological studies, urgent care reports/EKG's, retirement records)? Report findings @ -Reviewed report from patient's recent seroma aspiration Differential Diagnosis (chest pain, altered mental status, abdominal pain women, abdominal pain men, vaginal bleeding, weakness, fever, dyspnea, syncope, headache, dizziness, GI bleed, back pain, seizure, CVA, palpatations, mental health, musculoskeletal)? @ -MDM Differential Dyspnea: Coronary syndrome, arrhythmia, tamponade, asthma, COPD, pulmonary embolism, pneumonia, pneumothorax, pulmonary effusion, anaphylaxis, diabetic ketoacidosis, flailed chest, pulmonary contusion, diaphragmatic rupture, anemia, neuromuscular this is not meant to be an all-inclusive list. EKG interpreted by me (3pts min.). @ -Sinus bradycardia ventricular rate 57. OH interval 150. QRS 108. QTC 482. QTC 477. No ischemic changes. X-rays interpreted by me (1pt min.). @ -X-ray shows no acute process CT interpreted by me (1pt min.). @ -CT angio shows no pulmonary embolism. There is a seroma noted and mild atelectasis. U/S interpreted by me (1pt. min.). @ -None done What testing was considered but not performed or refused? (CT, X-rays, U/S, labs)? Why? @ -covid test considered, patient declined What meds were considered but not given or refused? Why? @ -None Did you discuss the management of the patient with other professionals (professionals i.e. ANOOP Jeong, [employer] W[employer]ER, lab, RT, psych nurse, forensic social worker, electrical wiring lineman, teacher, parking enforcement officer, gearcase assembler)? Give summary @ -No Was smoking cessation discussed for >3mins.? @ -No Was critical care preformed (if so, how long)? @ -No Were there social determinants of health that impacted care today? How? (Homelessness, low income, unemployed, alcoholism, drug addiction, transportation, low edu. Level, literacy, decrease access to med. care, care home, rehab)? @ -No Was there de-escalation of care discussed even if they declined (Discuss DNR or withdrawal of care, Hospice)? DNR status @ -No What co-morbidities impacted this encounter? (DM, HTN, Smoking, COPD, CAD, Cancer, CVA, ARF, Chemo, Hep., AIDS, mental health diagnosis, sleep apnea, morbid obesity)? @ -None Was patient admitted / discharged? Hospital course, mention meds given and route, prescriptions, significant lab abnormalities, going to OR and other pertinent info. @ -Patient is a 62-year-old female presenting with chief complaint of shortness of breath. Patient admits to recent productive cough, she also recently had a lumpectomy. On physical examination heart and lungs are clear to auscultation. Lab work shows no leukocytosis or anemia. Troponin is negative BMP is 298. Chest x-ray shows no acute process. D-dimer 0.68, CTA shows no pulmonary embolism. Seroma is noted on CT. Patient was given breathing treatment. She is instructed to follow-up with her PCP and surgeon. Follow-up with PCP. Report back to ER with any new or worsening symptoms. Discussed return parameters and answered all questions. Patient conveyed verbal understanding and agreed to the plan. I discussed this case in detail with my attending Dr. Saleh Undiagnosed new problem with uncertain prognosis? @ -No Drug Therapy requiring intensive monitoring for toxicity (Heparin, Nitro, Insulin, Cardizem)? @ -No Were any procedures done? @ -No Diagnosis/symptom? @ -URI Acute, or Chronic, or Acute on Chronic? @ -Acute Uncomplicated (without systemic symptoms) or Complicated (systemic symptoms)? @ -Complicated Side effects of treatment? @ -No Exacerbation, Progression, or Severe Exacerbation? @ -No Poses a threat to life or bodily function? How? (Chest pain, [place], [place], pneumonia, PE, COPD, DKA, ARF, appy, cholecystitis, CVA, Diverticulitis, Homicidal, Suicidal, threat to staff... and all critical care pts) @ -No - Lab Data Result diagrams: 02/17/23 14:25 02/17/23 14:25 Lab Results 02/17/23 02/17/23 02/17/23 Range/Units 14:25 14:25 14:25 WBC 3.8 (3.8-10.6) k/uL RBC 4.05 (3.80-5.40) m/uL Hgb 12.4 (11.4-16.0) gm/dL Hct 36.1 (34.0-46.0) % MCV 89.1 (80.0-100.0) fL MCH 30.6 (25.0-35.0) pg MCHC 34.4 (31.0-37.0) g/dL RDW 13.1 (11.5-15.5) % Plt Count 86 L (150-450) k/uL MPV 8.5 Neutrophils % 61 % Lymphocytes % 27 % Monocytes % 7 % Eosinophils % 3 % Basophils % 0 % Neutrophils # 2.3 (1.3-7.7) k/uL Lymphocytes # 1.0 (1.0-4.8) k/uL Monocytes # 0.3 (0-1.0) k/uL Eosinophils # 0.1 (0-0.7) k/uL Basophils # 0.0 (0-0.2) k/uL Manual Slide Review Performed RBC Morphology Normal PT 11.7 (9.0-12.0) sec INR 1.1 (<1.2) APTT 25.7 (22.0-30.0) sec D-Dimer (<0.60) mg/L FEU Sodium 137 (137-145) mmol/L Potassium 3.6 (3.5-5.1) mmol/L Chloride 102 (98-107) mmol/L Carbon Dioxide 27 (22-30) mmol/L Anion Gap 8 mmol/L BUN 14 (7-17) mg/dL Creatinine 0.48 L (0.52-1.04) mg/dL Est GFR (CKD-EPI)AfAm >90 (>60 ml/min/1.73 sqM) Est GFR (CKD-EPI)NonAf >90 (>60 ml/min/1.73 sqM) Glucose 101 H (74-99) mg/dL Calcium 8.6 (8.4-10.2) mg/dL Magnesium (1.6-2.3) mg/dL Total Bilirubin 0.8 (0.2-1.3) mg/dL AST 48 H (14-36) U/L ALT 28 (4-34) U/L Alkaline Phosphatase 138 H (38-126) U/L Troponin I (0.000-0.034) ng/mL NT-Pro-B Natriuret Pep pg/mL Total Protein 6.8 (6.3-8.2) g/dL Albumin 3.3 L (3.5-5.0) g/dL 02/17/23 02/17/23 02/17/23 Range/Units 14:25 14:25 14:25 WBC (3.8-10.6) k/uL RBC (3.80-5.40) m/uL Hgb (11.4-16.0) gm/dL Hct (34.0-46.0) % MCV (80.0-100.0) fL MCH (25.0-35.0) pg MCHC (31.0-37.0) g/dL RDW (11.5-15.5) % Plt Count (150-450) k/uL MPV Neutrophils % % Lymphocytes % % Monocytes % % Eosinophils % % Basophils % % Neutrophils # (1.3-7.7) k/uL Lymphocytes # (1.0-4.8) k/uL Monocytes # (0-1.0) k/uL Eosinophils # (0-0.7) k/uL Basophils # (0-0.2) k/uL Manual Slide Review RBC Morphology PT (9.0-12.0) sec INR (<1.2) APTT (22.0-30.0) sec D-Dimer 0.68 H (<0.60) mg/L FEU Sodium (137-145) mmol/L Potassium (3.5-5.1) mmol/L Chloride (98-107) mmol/L Carbon Dioxide (22-30) mmol/L Anion Gap mmol/L BUN (7-17) mg/dL Creatinine (0.52-1.04) mg/dL Est GFR (CKD-EPI)AfAm (>60 ml/min/1.73 sqM) Est GFR (CKD-EPI)NonAf (>60 ml/min/1.73 sqM) Glucose (74-99) mg/dL Calcium (8.4-10.2) mg/dL Magnesium 1.9 (1.6-2.3) mg/dL Total Bilirubin (0.2-1.3) mg/dL AST (14-36) U/L ALT (4-34) U/L Alkaline Phosphatase (38-126) U/L Troponin I <0.012 (0.000-0.034) ng/mL NT-Pro-B Natriuret Pep pg/mL Total Protein (6.3-8.2) g/dL Albumin (3.5-5.0) g/dL 02/17/23 Range/Units 14:25 WBC (3.8-10.6) k/uL RBC (3.80-5.40) m/uL Hgb (11.4-16.0) gm/dL Hct (34.0-46.0) % MCV (80.0-100.0) fL MCH (25.0-35.0) pg MCHC (31.0-37.0) g/dL RDW (11.5-15.5) % Plt Count (150-450) k/uL MPV Neutrophils % % Lymphocytes % % Monocytes % % Eosinophils % % Basophils % % Neutrophils # (1.3-7.7) k/uL Lymphocytes # (1.0-4.8) k/uL Monocytes # (0-1.0) k/uL Eosinophils # (0-0.7) k/uL Basophils # (0-0.2) k/uL Manual Slide Review RBC Morphology PT (9.0-12.0) sec INR (<1.2) APTT (22.0-30.0) sec D-Dimer (<0.60) mg/L FEU Sodium (137-145) mmol/L Potassium (3.5-5.1) mmol/L Chloride (98-107) mmol/L Carbon Dioxide (22-30) mmol/L Anion Gap mmol/L BUN (7-17) mg/dL Creatinine (0.52-1.04) mg/dL Est GFR (CKD-EPI)AfAm (>60 ml/min/1.73 sqM) Est GFR (CKD-EPI)NonAf (>60 ml/min/1.73 sqM) Glucose (74-99) mg/dL Calcium (8.4-10.2) mg/dL Magnesium (1.6-2.3) mg/dL Total Bilirubin (0.2-1.3) mg/dL AST (14-36) U/L ALT (4-34) U/L Alkaline Phosphatase (38-126) U/L Troponin I (0.000-0.034) ng/mL NT-Pro-B Natriuret Pep 298 pg/mL Total Protein (6.3-8.2) g/dL Albumin (3.5-5.0) g/dL Disposition Clinical Impression: Upper respiratory infection Disposition: HOME SELF-CARE Condition: Good Instructions (If sedation given, give patient instructions): Upper Respiratory Infection (ED) Additional Instructions: Follow-up with PCP. Follow-up with surgeon. Report back to ER with any new or worsening symptoms. Is patient prescribed a controlled substance at d/c from ED?: No Referrals: Rox Nguyen DO [Primary Care Provider] - 1-2 days Shikha Landin MD [STAFF PHYSICIAN] - 1-2 days Time of Disposition: 18:04
--- NOTE | 2023-02-17 17:33 | CT ---
CT CHEST FOR PULMONARY EMBOLISM. EXAMINATION TYPE: CT chest angio for PE DATE OF EXAM: 02/17/2023 INDICATION: elevated d-dimer CT DLP: 822 mGycm, Automated exposure control for dose reduction was used. CONTRAST: Patient injected with 100 mL of Isovue 370. COMPARISON: None TECHNIQUE: CT of the chest is performed on a spiral scan at 2 mm thick sections. Study is performed with intravenous contrast timed for evaluation for pulmonary embolism. This will limit additional po rtions of the evaluation. 3-D MIP images reconstructed by the technologist are reviewed on the compu ter in the coronal and sagittal planes. FINDINGS: No persistent filling defects are evident to suggest an acute pulmonary embolism. No mediastinal or hilar adenopathy enlarged by CT criteria is evident. The ascending aorta diameter at the level of the main pulmonary artery is 3.9 cm. The main pulmonary artery diameter at the bifur cation is 3.8 cm. Minimal compressive atelectasis within the left lung base is present. Limited CT section through the upper abdomen. There is mild fatty infiltration of the liver. Note is made of a large lower density area within the left breast. Correlate for seroma. This measure s 6.1 Hounsfield units. IMPRESSIONS: 1. No acute pulmonary embolism. 2. Minimal compressive atelectasis left lung base. 3. Postsurgical changes appear to be within the left breast. A large seroma may be present. Follow-up is recommended.
[2023-02-17] MEDS ORDERED: IPRATROPIUM-ALBUTEROL 3 ML NEB INHALATION STA (17:46)
[2023-02-17 18:01] VITALS: PULSE 78; RESP 18; TEMP 98.7
[2023-02-17 18:21] VITALS: BP 165/97
== END 2023-02-17 18:44 | disposition home or self-care (01) ==
LOC: EC 13:45
DX: J06.9 Acute upper respiratory infection, unspecified (principal); I10 Essential (primary) hypertension; J45.909 Unspecified asthma, uncomplicated; M19.90 Unspecified osteoarthritis, unspecified site; M79.7 Fibromyalgia; F32.A Depression, unspecified; F41.9 Anxiety disorder, unspecified; F17.200 Nicotine dependence, unspecified, uncomplicated; Z79.82 Long term (current) use of aspirin; Z79.899 Other long term (current) drug therapy; Z88.7 Allergy status to serum and vaccine; Z91.040 Latex allergy status
CPT/HCPCS: 36415; 94640; 85379; 83880; 80053; 83605; 83735; 84484; 85025; 85610; 85730; 71046; 71275; 99285; Q9967

== ENCOUNTER → 2023-02-19 | Outpatient (CLI) | payer BC ==
[2023-02-19 14:31] VITALS: BP 144/76; PULSE 63; RESP 18; TEMP 98.3
--- NOTE | 2023-02-19 14:47 | P.PN ---
Progress Note - Text Progress Note Date: 02/19/23 Ninoska is a 62-year-old white female status post left breast lumpectomy and sentinel node biopsy on . 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 On initial specimen the posterior medial margins were positive. The patient had reexcision of medial and posterior margins which were negative. She did also have some DCIS. Margins were negative for DCIS. 5 lymph nodes were removed two were positive for cancer. She was seen by Dr. Mcclellan on . The patient was recommended to undergo adjuvant chemotherapy with standard dose Adriamycin and Cytoxan followed by dose dense Taxol. The patient is also recommended to undergo radiation therapy as well as hormonal therapy. Given her minnie involvement a PET scan was ordered. This is has been scheduled. She is scheduled to see radiation oncology but she is going to have chemotherapy prior to this so that has been delayed. She was seen in the ER on 02-16-23 with SOB breath which has improved. Her PET scan is scheduled for FridayFebruary 2212-26. The seroma was aspirated on her last visit 8 mL of serous fluid was removed. On today's visit she complains of some fullness again in the breast, she is not complaining of any fever lungs: clear Heart: S1-S2 systolic ejection murmur Incision axilla clean and dry Incision breast clean and dry decreased fullness of the breast with some mild superficial skin erythema Impression: Patient doing well postoperatively; small seroma aspirated on last visit Consider ultrasound-guided aspiration and cultures of the left breast if there is anything to treat we would do targeted antibiotic therapy Plan: Follow up next week for evaluation Follow-up medical oncology Follow-up radiation oncology CC: Dr. Nguyen
== END ==
LOC: WWCWWP 14:10
PROVIDERS: ATTEND Surgery
DX: Z85.3 Personal history of malignant neoplasm of breast (principal); Z88.7 Allergy status to serum and vaccine; Z91.040 Latex allergy status; F17.200 Nicotine dependence, unspecified, uncomplicated

== ENCOUNTER → 2023-02-22 | Outpatient (CLI) | payer BC ==
--- NOTE | 2023-02-23 13:19 | PE ---
EXAMINATION TYPE: PET CT fusion skull to thigh DATE OF EXAM: 02/22/2023 CLINICAL INDICATION:Female, 62 years old with history of C50.112 Breast ca; TECHNIQUE: Following the intravenous administration of 13.9 mCi of F-18 FDG, whole body images are performed from the skull base to the midthigh. Images are reviewed on the computer in the coronal, a xial, and sagittal planes. Reconstructed rotating images are created on independent workstation and reviewed on the computer. A non-contrast CT is performed in conjunction with the PET scan. Glucose level 112 mg/dL COMPARISON: CT 02/17/2023, PET/CT None, FINDINGS: Mediastinal SUV mean is 1.6. Hepatic parenchyma SUV mean is 2.1. SKULL BASE AND NECK: No suspicious radiotracer activity. CHEST, MEDIASTINUM, AND HILAR REGION: Cystic changes to the left breast with portions of the breast out of the [id number]. There appears to be skin thickening with increased FDG activity max SUV 2.8. No enlarged lymph nodes identified. C ystic changes within the left breast measure roughly 7.9 x 3.9 cm with fingerlike extension more supe riorly. Max SUV within the cystic change 1.9 more superiorly and 2.4 inferiorly. ABDOMEN AND PELVIS: No suspicious radiotracer activity. OSSEOUS STRUCTURES: No suspicious radiotracer activity. OTHER CT: The heart is mildly enlarged for size. There is mitral valve annular calcifications. The ga llbladder surgically absent. Post surgical changes to the lower spine lumbar spine. Scattered colonic diverticula. IMPRESSION: Left breast skin thickening with increased FDG activity suspicious for inflammatory breast cancer. No evidence for abnormal FDG activity outside the breast skin. There is post treatment changes without evidence for lymphadenopathy or persistent FDG activity within the breast.
== END | disposition home or self-care (01) ==
LOC: RADPETMAIN 10:10
PROVIDERS: ATTEND Internal Medicine Hematology & Oncology
DX: C50.112 Malignant neoplasm of central portion of left female breast (principal); R23.4 Changes in skin texture
CPT/HCPCS: 78815; A9552

== ENCOUNTER 2023-03-17 07:02 | Day surgery (SDC) | payer BC ==
[~2023-03-17 07:02] MED LIST changes: +ACETAMINOPHEN TAB 500 MG TAB PO PRN; -ALPRAZolam 0.25 MG TAB PO ONE; -DEXAMETHASONE SOD PHOSPHATE 10 MG/ML 1 ML VIAL IV ONE; -HEPARIN SODIUM,PORCINE 5,000 UNIT/ML 1 ML VIAL SQ ONE; +HEPARIN SODIUM,PORCINE/PF 5,000 UNIT/0.5 ML SYRINGE SQ PRN; -HYDROcodone/APAP 5-325MG 1 EACH TAB PO ONE; -HYDROmorphone (PF) 1 MG/ML ONE; -LACTATED RINGERS 1,000 ML IV ONE; -LIDOCAINE (PF) 10 MG/ML 2 ML VIAL SQ ONE; -LIDOCAINE 1% INJ 10MG/ML (20 ML MDV) ONE; -LIDOCAINE 1% INJ 10MG/ML (20 ML MDV) SQ ONE; -MIDAZOLAM 2 MG/2 ML VIAL IV ONE; -MIDAZOLAM 2 MG/2 ML VIAL ONE; -ONDANSETRON 4 MG/2 ML VIAL IVP ONE; -PROPOFOL 10 MG/ML 20 ML VIAL IV ONE; -SODIUM BICARB 4% 5 ML VIAL (0.48 MEQ/ML) MISCELLANE ONE; -SUCCINYLCHOLINE CHLORIDE 100 MG/5 ML SYR IV ONE; -ePHEDrine SULFATE/0.9% NACL/PF 50 MG/5 ML SYRINGE IV ONE; -fentaNYL (PF) 50 MCG/ML 2 ML AMP ONE
[2023-03-17] MEDS ORDERED: LACTATED RINGERS 1,000 ML IV ONE (07:32)
[2023-03-17 07:39] VITALS: TEMP 97.5
[2023-03-17] MEDS ORDERED: ONDANSETRON 4 MG/2 ML VIAL ONE (07:47)
[2023-03-17] MEDS ORDERED: DEXAMETHASONE SOD PHOSPHATE 4 MG/ML 1 ML VIAL IVP ONE (08:02)
--- NOTE | 2023-03-17 08:41 | P.GSHP ---
History of Present Illness H&P Date: 03/17/23 Chief Complaint: History of left breast cancer This a 62-year-old female who presents today for insertion of Port-A-Cath. Patient's recent diagnosis of breast cancer. Past Medical History Past Medical History: Asthma, Cancer, Fibromyalgia, Hypertension, Osteoarthritis (OA), Sleep Apnea/CPAP/BIPAP Additional Past Medical History / Comment(s): Ischemic Colitis. vertigo intermittent. uses cpap. breast cancer-left History of Any Multi-Drug Resistant Organisms: None Reported Past Surgical History: Breast Surgery, Section, Cholecystectomy, Hysterectomy Additional Past Surgical History / Comment(s): carpal tunnel bilateral wrists lft breast lumpectomy. lumbar back surgery. right breast excisional biopsy 2007-benign. cardiac cath-clear 2013. Heel spur surgery June 2021 Past Anesthesia/Blood Transfusion Reactions: Postoperative Nausea & Vomiting (PONV) Additional Past Anesthesia/Blood Transfusion Reaction / Comment(s): mild Smoking Status: Current some day smoker - Past Family History Father Family Medical History: Cancer Additional Family Medical History / Comment(s): Colon. Paternal Grandmother: Diabetes, Heart Failure Mother Family Medical History: Cancer, Congestive Heart Failure (CHF), COPD, Diabetes Mellitus, Hyperlipidemia, Hypertension Additional Family Medical History / Comment(s): Mother: Right Breast Cancer, Emphysema. Maternal Grandmother: Right Breast Cancer and Myocardial Infarction Brother(s) Family Medical History: Diabetes Mellitus, Hypertension Medications and Allergies Home Medications Medication Instructions Recorded Confirmed Type ALPRAZolam [Xanax] 0.25 mg PO DAILY PRN 06/19/18 03/17/23 History Aspirin [Adult Low Dose Aspirin EC] 81 mg PO DAILY 06/19/18 03/17/23 History Zafirlukast [Accolate] 20 mg PO BID 06/19/18 03/17/23 History FLUoxetine HCL [PROzac] 20 mg PO BID 06/25/18 03/17/23 History HYDROcodone/APAP 7.5-325MG [[place] 1 tab PO Q6HR PRN 11/08/22 03/17/23 History 7.5-325] Cyclobenzaprine [Flexeril] 10 mg PO HS 12/25/22 03/17/23 History Losartan Potassium 100 mg PO DAILY 12/25/22 03/17/23 History hydroCHLOROthiazide [Hydrodiuril] 25 mg PO DAILY 12/25/22 03/17/23 History Cetirizine HCl [Zyrtec] 10 mg PO DAILY 12/31/22 03/17/23 History Albuterol Inhaler [Ventolin Hfa 1 - 2 puff INHALATION RT-Q6H PRN 02/17/23 03/17/23 History Inhaler] Furosemide [Lasix] 20 mg PO DAILY PRN 02/17/23 03/17/23 History Vit C (Unknown) 1 tab PO DAILY 03/13/23 03/17/23 History Allergies Allergy/AdvReac Type Severity Reaction Status Date / Time latex Allergy Rash/Hives Verified 03/17/23 07:36 Tetanus Vaccines and Toxoid AdvReac Unknown Verified 03/17/23 07:36 Childhood Surgical - Exam Vital Signs Temp Pulse Resp BP Pulse Ox 97.5 F L 64 18 159/69 98 03/17/23 07:37 03/17/23 07:37 03/17/23 07:37 03/17/23 07:37 03/17/23 07:37 - General well developed, well nourished, no distress - Eyes PERRL - ENT normal pinna - Neck no masses - Respiratory normal expansion - Cardiovascular Rhythm: regular - Abdomen Abdomen: soft, non tender Results - Labs 03/17/23 07:45 Diabetes panel 03/17/23 Range/Units 07:45 Potassium 3.8 (3.5-5.1) mmol/L Pituitary panel 03/17/23 Range/Units 07:45 Potassium 3.8 (3.5-5.1) mmol/L Adrenal panel 03/17/23 Range/Units 07:45 Potassium 3.8 (3.5-5.1) mmol/L Assessment and Plan Assessment: History of breast cancer. We'll perform Port-A-Cath insertion
[2023-03-17] MEDS ORDERED: HEPARIN SODIUM,PORCINE 100 UNIT/ML 5 ML VIAL IV ONE ×2 (08:48→09:29)
[2023-03-17] MEDS ORDERED: MIDAZOLAM 2 MG/2 ML VIAL ONE (08:49)
[2023-03-17] MEDS ORDERED: BUPIVACAINE (PF) 0.25% 30 ML VIAL SQ ONE ×2 (08:49→09:09)
[2023-03-17] MEDS ORDERED: PROPOFOL 10 MG/ML 20 ML VIAL IV ONE (08:49)
[2023-03-17] MEDS ORDERED: KETAMINE 10 MG/ML 20 ML VIAL ONE (08:49)
[2023-03-17] MEDS ORDERED: fentaNYL (PF) 50 MCG/ML 50 ML VIAL ONE (08:49)
[2023-03-17] MEDS ORDERED: LIDOCAINE 2% INJ 20 MG/ML (2 ML VIAL) ONE (08:49)
[2023-03-17] MEDS ORDERED: IOPAMIDOL-370 100ML BTL MISCELLANE ONE ×2 (08:49→09:25)
--- NOTE | 2023-03-17 09:39 | P.OP ---
Date of Procedure: 03/17/23 Preoperative Diagnosis: Left breast cancer Postoperative Diagnosis: Left breast cancer Procedure(s) Performed: Insertion of right subclavian Port-A-Cath Anesthesia: MAC Surgeon: Min Bob Estimated Blood Loss (ml): 5 Pathology: none sent Condition: stable Disposition: PACU Description of Procedure: MThe patient was placed on the operating table in the supine position. The patient received IV sedation. The patient's chest was prepped and draped in the usual sterile fashion. A roll had been placed between the shoulder blades in a longitudinal fashion. After prepping and draping the skin was anesthetized 1% local Xylocaine. And then using the Seldinger technique the subclavian vein was cannulated. A wire was placed into the vein and fluoroscopy position the wire at the atrial caval junction. Next the dilator sheath was placed over top the wire and the wire was withdrawn. The catheter was positioned at the atriocaval position. The catheter was placed through the sheath after the dilator was withdrawn. The sheath was then withdrawn. Position of the catheter was confirmed with fluoroscopy. The Port-A-Cath was connected to the catheter. The Port-A-Cath was flushed with saline and then heparinized saline. The skin was closed interrupted 3-0 Monocryl suture. Dermabond was applied. Patient tolerated procedure well and was sent to recovery room stable condition.
[2023-03-17 10:04] VITALS: RESP 18
[2023-03-17 10:40] VITALS: BP 135/70; PULSE 60
--- NOTE | 2023-03-17 10:48 | XR ---
EXAMINATION TYPE: XR chest 1V confirm line [facility] DATE OF EXAM: 03/17/2023 COMPARISON: 02/17/2023 HISTORY: Shortness of breath TECHNIQUE: Single frontal view of the chest is obtained. FINDINGS: There is no focal air space opacity, pleural effusion, or pneumothorax seen. The osseo us structures are intact. Right-sided MediPort catheter seen with the tip overlying the SVC. There is a coarsened interstitium and cardiomegaly. IMPRESSION: Cardiomegaly correlate for chronic interstitial lung disease. Mediport is seen with the tip overlying SVC and no sizable pneumothorax.
--- NOTE | 2023-03-17 14:47 | FL ---
Fluoroscopy INDICATION: Pain FINDINGS: Fluoroscopy time: 37.8 seconds. Total dose area product (DAP) in uGy*m?, mGy*cm? (or similar): 3.1315 Images obtained: 2. IMPRESSIONS: 1. Documentation of fluoroscopy.
== END 2023-03-17 11:16 | disposition home or self-care (01) ==
LOC: OR 07:02
PROVIDERS: ATTEND Surgery
DX: C50.912 Malignant neoplasm of unspecified site of left female breast (principal); J45.909 Unspecified asthma, uncomplicated; M79.7 Fibromyalgia; I10 Essential (primary) hypertension; M19.90 Unspecified osteoarthritis, unspecified site; G47.33 Obstructive sleep apnea (adult) (pediatric); K91.0 Vomiting following gastrointestinal surgery; F17.200 Nicotine dependence, unspecified, uncomplicated; Z99.89 Dependence on other enabling machines and devices; Z90.49 Acquired absence of other specified parts of digestive tract; Z90.710 Acquired absence of both cervix and uterus; Z98.891 History of uterine scar from previous surgery; Z82.49 Family history of ischemic heart disease and other diseases of the circulatory system; Z83.3 Family history of diabetes mellitus; Z80.3 Family history of malignant neoplasm of breast; Z83.49 Family history of other endocrine, nutritional and metabolic diseases; Z79.82 Long term (current) use of aspirin; Z79.899 Other long term (current) drug therapy; Z98.51 Tubal ligation status; Z91.040 Latex allergy status; Z88.7 Allergy status to serum and vaccine
CPT/HCPCS: 84132; 77001; 36561; C1788; J2250; J1642; J1100; J3010; J2405; J2704; Q9967; J1644; J2001

== ENCOUNTER → 2023-03-20 | Outpatient (CLI) | payer BC ==
[2023-03-20 12:27] VITALS: BP 180/78; PULSE 66; RESP 12; TEMP 98
--- NOTE | 2023-03-20 12:48 | P.PN ---
Progress Note - Text Progress Note Date: 03/20/23 Ninoska is a 62-year-old white female status post left breast lumpectomy and sentinel node biopsy on . 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 On initial specimen the posterior medial margins were positive. The patient had reexcision of medial and posterior margins which were negative. She did also have some DCIS. Margins were negative for DCIS. 5 lymph nodes were removed two were positive for cancer. [place] [id number]. The patient was recommended to undergo adjuvant chemotherapy with standard dose Adriamycin and Cytoxan followed by dose dense Taxol. The patient is also recommended to undergo radiation therapy as well as hormonal therapy. Given her minnie involvement a PET scan was ordered. PET scan showed no evidence of metastatic disease. Uptake was noted in the left breast with report mentioned the possibility of inflammatory breast cancer. The uptake was felt to be due to postsurgical changes. She is scheduled to see radiation oncology but she is going to have chemotherapy prior to this so that has been delayed. She was seen in the ER on 02-16-23 with SOB breath which has improved. She was seen by radiology and ultrasound-guided aspiration of the seroma in the left breast was performed and [id number]. Approximately 75 mL of fluid were removed. Cultures on this revealed PMNs but no organisms. A punch biopsy of the skin was done on 03-07-23 which was benign. [place] [id number]. She tolerated this without difficulty. [place] [id number].She was also given a nulesta patch. She is not complaining of any fever or chills. She does have some persistent erythema of the lower aspect of the left breast. This is improved. lungs: clear Heart: S1-S2 systolic ejection murmur Incision axilla clean and dry Incision breast clean and dry; the patient does have some thickening of the skin near the lumpectomy site and that is the area that the PET scan was concerned about; punch biopsy site is healing well decreased fullness of the breast with some mild superficial skin erythema Impression: Mild thickening of the skin at her prior lumpectomy site Patient has started chemotherapy Plan: Punch biopsy area of skin benign Follow-up with Dr. Mcclellan Follow up here 4 months CC:Dr. Nguyen
== END ==
LOC: WWCWWP 12:07
PROVIDERS: ATTEND Surgery
DX: Z85.3 Personal history of malignant neoplasm of breast (principal); Z91.040 Latex allergy status; Z88.7 Allergy status to serum and vaccine; F17.200 Nicotine dependence, unspecified, uncomplicated

== ENCOUNTER → 2023-07-21 | Outpatient (CLI) | payer BC ==
[2023-07-21 21:29] LABS: HCT 29.9 % (37.2-46.3); HGB 9.5 d/dL (12.0-15.0); MCH 30.7 pg (27.0-32.0); MCHC 31.8 d/dL (32.0-37.0); MCV 96.8 FL (80.0-97.0); Mean Platelet Volume 11.1 FL (9.5-12.2); NRBC Per 100 WBC 0 X 10*3/uL (0.00-0.01); Platelet Count 81 X 10*3/uL (140-440); RBC 3.09 X 10*6/uL (4.10-5.20); WBC 3.01 X 10*3/uL (4.50-10.00)
== END | disposition home or self-care (01) ==
LOC: LABPAT 13:06
PROVIDERS: ATTEND Surgery
DX: Z01.812 Encounter for preprocedural laboratory examination (principal); Z45.2 Encounter for adjustment and management of vascular access device
CPT/HCPCS: 36415; 84132; 85027

== ENCOUNTER → 2023-11-13 | Outpatient (CLI) | payer BC ==
--- NOTE | 2023-11-13 13:22 | P.PN ---
Subjective Progress Note Date: 11/13/23 left breast stage I invasive ductal cancer Ninoska is a 62-year-old female who is status post stereotactic core biopsy of the right breast in 2018 of approximately 4 sites. She was noted to have atypical lobular hyperplasia/lobular carcinoma in situ. She subsequently underwent a lumpectomy in the operating room on 08-25-18. At the time of the lumpectomy the right breast posterior/lateral lesion revealed focal lobular neoplasia involving complex sclerosing lesion/radial scar. Additionally an anterior excision revealed focal lobular neoplasia as well. 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 No invasive ductal carcinoma was identified. The patient in approximately July 2022 noted a lump in her left breast. She underwent a bilateral mammogram on 10-23-22, this did not show any lesions of concern in the right breast however a spiculated mass was noted in the left breast and ultrasound was recommended. The ultrasound was performed on [id number]. This revealed a 2.1 x 1.7 cm lesion for which core biopsy was recommended. This did reveal an invasive ductal carcinoma grade 2. This is ER/UT positive HER-2/perla negative. presentation of case at tumor board 12-10-22 it was recommended we proceed with surgery, to be followed by radiation, and then hormonal therapy She underwent a lumpectomy and SNB of the left breast on 12-31-22. Tumor 3.2 cm, original margins (+) reexcision done an dnew margins (-) 2 of 5 nodes involved w ith macromets. She was not able to tolerated a full course of chemotherapy but completed radiation therapy on 09-19-23. Has not yet started hormone therapy but will see the medical oncologist next week. She had recent kidney ultrasound at [facility] results pending spinal cord: Osteoporosis/arthritis results pending oncotype 22 note 10-21-23 DR. Lynn reviewed caffeine:tea in the am nicotine: 1/2 PPD; smoking for 44 years chocolate: weekly BCP: 2 years hormones: 10 years not using them now Family history: Mother: Breast cancer in her 30s Maternal grandmother: Breast cancer Father: Colon cancer at 38 History: Menarche: 12 Pregnancies: 2 with one live and one miscarriage, she did not breast-feed, first full-term at 26 Menopause: In her 30s secondary to total abdominal hysterectomy for endometriosis; at 37 both ovaries removed Postoperative control pills: 2 year Hormones: 10 years surgical history: 1. 2. Cholecystectomy 3. ZAIRE/BSO 4. Lumbar fusion 5. right breast biopsy 6. bilateral carpel tunnel 7. left ankle 8. Left breast lumpectomy and sentinel node biopsy, reexcision of margins of left breast 9. port a cath placed and removed Past medical history: 1. Asthma 2. Fibromyalgia 3. Sleep apnea. 4. colitis 5. Hypertension 6. Anxiety/depression 7. Osteoarthritis 8. Peripheral neuropathy Smoking history: Smokin packs per week has decreased; alcohol: 3-4 times per week Drugs: Negative Review of systems: Constitutional: Negative HEENT: Left ear decreased hearing, blurred vision Lungs: Asthma, smoker Heart: Questionable murmur GI:colitis : see HPI Osseous skeletal: Arthritis Integument: WNL Psychiatric: Anxiety/depression Endocrine: Fatigue Hematologic: Patient takes aspirin Objective - Vital Signs Vital signs: Intake & Output 11/12/23 11/13/23 11/13/23 18:59 06:59 18:59 Weight 117.934 kg - Constitutional General appearance: Present: cooperative - EENT Eyes: Present: EOMI - Neck Neck: Present: normal ROM - Respiratory Respiratory: bilateral: CTA - Cardiovascular Heart sounds: normal: S1, S2 - Integumentary Integumentary: Present: normal turgor - Musculoskeletal Musculoskeletal Comment(s): uses a wheel chair - Psychiatric Psychiatric: Present: A&O x's 3, appropriate affect, intact judgment & insight - Additional findings Additional findings: Breast Exam: BRA: 44C Inspection: bilateral grade 2/3 ptosis; healed scar right breast from prior surgery palpation: right breast: Patient examined sitting in chair as it is difficult for her to climb to the exam table secondary to knee pain exam fibrocystic changes no dominant masses or nodules of concern well-healed scar from prior surgery Right axilla: No adenopathy of concern Left breast: Patient examined sitting in chair at approximately postradiation and postsurgical changes noted, in the lateral aspect near the periareolar region there is what appears to have been a bleb which has drained at least partially Left axilla: No adenopathy of concern Assessment and Plan Assessment: Impression: 1. Asthma 2. Fibromyalgia 3. Sleep apnea. 4. colitis 5. Hypertension 6. Anxiety/depression 7. Osteoarthritis 8. T2 N0 M0 G2 ER/UT positive HER-2/perla negative invasive ductal carcinoma left breast 9. Postradiation and postoperative changes left breast no evidence of recurrent cancer at this time 10. bleb superficial left breast which has spontaneously drained Stage IB left breast cancer Plan: Left breast ultrasound determine if there is any fluid which can be drained Bilateral mammogram due in January Follow-up after ultrasound of left breast Continue to follow with medical and radiation oncology CC: Dr. Nguyen
[2023-11-13 13:27] VITALS: BP 125/65; PULSE 66; RESP 17; TEMP 98.3
== END ==
LOC: WWCWWP 12:24
PROVIDERS: ATTEND Surgery
DX: C50.912 Malignant neoplasm of unspecified site of left female breast (principal); F32.A Depression, unspecified; F41.9 Anxiety disorder, unspecified; G47.30 Sleep apnea, unspecified; I10 Essential (primary) hypertension; J45.909 Unspecified asthma, uncomplicated; M79.7 Fibromyalgia; K52.9 Noninfective gastroenteritis and colitis, unspecified; M19.90 Unspecified osteoarthritis, unspecified site; G90.09 Other idiopathic peripheral autonomic neuropathy; N64.89 Other specified disorders of breast; F12.90 Cannabis use, unspecified, uncomplicated; F17.210 Nicotine dependence, cigarettes, uncomplicated; Z17.0 Estrogen receptor positive status [ER+]; Z78.0 Asymptomatic menopausal state; Z80.3 Family history of malignant neoplasm of breast; Z90.722 Acquired absence of ovaries, bilateral; Z92.3 Personal history of irradiation; Z91.040 Latex allergy status; Z88.7 Allergy status to serum and vaccine; Z79.899 Other long term (current) drug therapy

== ENCOUNTER → 2023-12-02 | Outpatient (CLI) | payer BC ==
--- NOTE | 2023-12-02 11:01 | USB ---
Patient History: Menarche at age 13. First Full-Term at age 26. Left ovary removed at age 37. Right ovary removed at age 37. Hysterectomy at age 37. Postmenopausal. Breast cancer, left, age 61. Breast cancer, left, age 62. Estrogen for 10 years from age 37 until age 47. 02/24/2023, Benign US breast aspiration single LT on the left side. 12/31/2022, Lumpectomy on the Left side. 12/31/2022, Malignant MG pre op needle loc LT on the left side. 11/15/2022, Malignant US biopsy breast VAD LT on the left side. 08/25/2018, High risk Core Biopsy on the right side. 08/25/2018, High risk Core Biopsy on the right side. 08/25/2018, High risk Core Biopsy on the right side. 07/24/2018, Benign Core Biopsy on the right side. 07/24/2018, Benign Core Biopsy on the right side. 06/25/2018, High risk Core Biopsy on the right side. 06/25/2018, High risk Core Biopsy on the right side. Maternal grandmother had breast cancer, age 61. Mother had breast cancer, age 37. Technique: Method: Targeted. Doppler: Color. Patient Position: Supine. Prior Study Comparison: 10/23/2022 Bilateral MG 3D screening mammo w/cad, [facility]. 11/01/2022 Left MG 3D work up w/cad LT - 2, [facility]. 11/15/2022 Left MG diagnostic mammo LT wo CAD., [facility]. Findings: The upper section of the breast of the left breast, the axilla of the left breast and the retroareolar of the left breast were scanned. Elongated simple fluid collection left 12:00 position measuring 4.1 x 3.0 x 1.7 cm. Overall Assessment: Benign, BI-RAD 2 Electronically signed and approved by: Jonh Dan M.D. Radiologis
== END | disposition home or self-care (01) ==
LOC: RADUSWWP 10:19
PROVIDERS: ATTEND Surgery
DX: N64.89 Other specified disorders of breast (principal); Z85.3 Personal history of malignant neoplasm of breast; Z80.3 Family history of malignant neoplasm of breast; Z78.0 Asymptomatic menopausal state

== ENCOUNTER → 2023-12-22 | Day surgery (SDC) | payer BC ==
--- NOTE | 2023-12-26 11:24 | USB ---
Prior Study Comparison: 10/23/2022 Bilateral MG 3D screening mammo w/cad, [facility]. 11/01/2022 Left MG 3D work up w/cad LT - 2, [facility]. 11/15/2022 Left MG diagnostic mammo LT wo CAD., [facility]. Pathology Description: Location: 12 o'clock. 18 ml aspirated. No clip was placed.Initial scanning with redemonstration of the well-defined fluid collection at the 12:00 position, 7 cm from the nipple measuring 4.6 x 3.4 x 1.5 cm. There is additional history of prior several aspirations, one in the ultrasound department and one in the office. Additional scanning from 12:00 to 6:00 along the patient's area of swelling and pain shows diffusely edematous tissues but no additional fluid collection or solid/cystic lesion. We note that the patient is due for her annual mammogram exam. The ultrasound guided cyst aspiration procedure was explained to the patient. The risks, benefits, alternatives were discussed. An informed consent was then obtained. A time out was performed. The patient was placed in supine positioning for imaging and for the procedure. The overlying skin was prepped with ChloraPrep and sterilely draped in usual sterile fashion. 7 ml 1% lidocaine was used as anesthetic into the skin and deeper breast tissue up to area of concern in the left 12 o'clock breast, 7 cm from nipple. Under ultrasound guidance, an 18-gauge spinal needle was advanced into the cyst and aspiration yielded 18 mL of serous sanguinous fluid. The seroma cavity collapsed completely following aspiration. The fluid was labeled and sent for laboratory analysis. No microclip was placed. Good hemostasis was obtained with direct pressure. Given patient's lateral breast pain and tenderness, we deferred mammogram at this time. The patient has an order to receive her annual exam within the month. The patient tolerated the procedure well without any immediate complication. The patient was discharged to home in stable condition. IMPRESSION: Successful ultrasound guided seroma evacuation 12:00 left breast weight 18 mL serosanguinous fluid removed. Cytology pending. Note that this is a repeatedly recurring seroma with previous aspirations in the ultrasound department and also within the office. Patient has an order for her annual exam to be performed within the month. Recommend further clinical management of patient's lateral left breast swelling and pain. Pathology Results: Result: Benign. LEFT BREAST, 12:00, ASPIRATE: Hypocellular specimen consisting of mainly blood. No cytologically malignant cells identified. Overall Assessment: Benign Management: Diagnostic Mammogram of both breasts in 1 month. Follow up bilateral diagnostic mammogram in 1 month for annual exam. Electronically signed and approved by: Faizan Marks M.D. Radiologist
== END ==
LOC: RADUSWWP 12:41
PROVIDERS: ATTEND Surgery
DX: N60.02 Solitary cyst of left breast (principal)
CPT/HCPCS: 88108; 88305; 76942; 19000; A4648

== ENCOUNTER → 2024-01-21 | Outpatient (CLI) | payer BC ==
--- NOTE | 2024-01-21 13:44 | MM ---
Reason for Exam: Additional evaluation requested from abnormal screening. Last mammogram was performed 1 year(s) and 3 month(s) ago. Patient History: Menarche at age 13. First Full-Term at age 26. Left ovary removed at age 37. Right ovary removed at age 37. Hysterectomy at age 37. Postmenopausal. Breast cancer, left, age 61. Breast cancer, left, age 62. Previous chest radiation therapy at age 61. Previous chemotherapy at age 61. Estrogen for 10 years from age 37 until age 47. 12/22/2023, Benign US breast aspiration single LT on the left side. 02/24/2023, Benign US breast aspiration single LT on the left side. 12/31/2022, Lumpectomy on the Left side. 12/31/2022, Malignant MG pre op needle loc LT on the left side. 11/15/2022, Malignant US biopsy breast VAD LT on the left side. 08/25/2018, High risk Core Biopsy on the right side. 08/25/2018, High risk Core Biopsy on the right side. 08/25/2018, High risk Core Biopsy on the right side. 07/24/2018, Benign Core Biopsy on the right side. 07/24/2018, Benign Core Biopsy on the right side. 06/25/2018, High risk Core Biopsy on the right side. 06/25/2018, High risk Core Biopsy on the right side. Maternal grandmother had breast cancer, age 61. Paternal cousin had ovarian cancer. Paternal cousin had breast cancer. Mother had breast cancer, age 37. Prior Study Comparison: 06/03/2018 Screening Mammogram, Unknown. 06/10/2018 Screening Mammogram, Unknown. 03/11/2019 Right Diagnostic Mammogram, [facility]. 07/09/2019 Bilateral Diagnostic Mammogram, [facility]. 10/23/2022 Bilateral MG 3D screening mammo w/cad, [facility]. 11/01/2022 Left MG 3D work up w/cad LT - 2, [facility]. 11/15/2022 Left MG diagnostic mammo LT wo CAD., [facility]. Tissue Density: There are scattered areas of fibroglandular density. Findings: Analyzed By CAD. Surgical clips bilaterally. There is diffuse soft tissue thickening of the left breast with posttreatment change. No new suspicious masses, calcifications or distortions. Surgical clips bilaterally. There is diffuse epidermal thickening of the left breast with posttreatment change. No new suspicious masses, calcifications or distortions. Overall Assessment: Benign, BI-RAD 2 Management: Screening Mammogram of both breasts in 1 year. Clinical management for edema in the left breast. Results were given to the patient verbally at the time of exam. Patient should continue monthly self-breast exams. A clinical breast exam by your physician is recommended on an annual basis. This exam should not preclude additional follow-up of suspicious palpable abnormalities. Note on Siobhan scores and lifetime risk: 1. A Siobhan score greater than 3% is considered moderate risk. If this is the case, consider specialist referral to assess eligibility for a risk reducing agent. 2. If overall lifetime risk for the development of breast cancer is 20% or higher, the patient may qualify for future screening with alternating mammogram and breast MRI. Electronically signed and approved by: Vernon Vilchis DO
== END | disposition home or self-care (01) ==
LOC: RADMAMWWP 12:46
PROVIDERS: ATTEND Surgery
DX: R92.323 Mammographic fibroglandular density, bilateral breasts (principal); Z80.3 Family history of malignant neoplasm of breast; Z78.0 Asymptomatic menopausal state; Z85.3 Personal history of malignant neoplasm of breast
CPT/HCPCS: 77062; 77066

== ENCOUNTER → 2024-02-13 | Outpatient (CLI) | payer BC ==
[2024-02-13 10:50] VITALS: BP 143/64; PULSE 62; RESP 16; TEMP 98
--- NOTE | 2024-02-13 10:54 | P.PN ---
Subjective Progress Note Date: 02/13/24 02-13-24 left breast stage I invasive ductal cancer Ninoska is a 62-year-old female who is status post stereotactic core biopsy of the right breast in 2018 of approximately 4 sites. She was noted to have atypical lobular hyperplasia/lobular carcinoma in situ. She subsequently underwent a lumpectomy in the operating room on 08-25-18. At the time of the lumpectomy the right breast posterior/lateral lesion revealed focal lobular neoplasia involving complex sclerosing lesion/radial scar. Additionally an anterior excision revealed focal lobular neoplasia as well. 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 No invasive ductal carcinoma was identified. The patient in approximately July 2022 noted a lump in her left breast. She underwent a bilateral mammogram on 10-23-22, this did not show any lesions of concern in the right breast however a spiculated mass was noted in the left breast and ultrasound was recommended. The ultrasound was performed on [id number]. This revealed a 2.1 x 1.7 cm lesion for which core biopsy was recommended. This did reveal an invasive ductal carcinoma grade 2. This is ER/MI positive HER-2/perla negative. presentation of case at tumor board 12-10-22 it was recommended we proceed with surgery, to be followed by radiation, and then hormonal therapy She underwent a lumpectomy and SNB of the left breast on 12-31-22. Tumor 3.2 cm, original margins (+) reexcision done an dnew margins (-) 2 of 5 nodes involved with macromets. She was not able to tolerated a full course of chemotherapy but completed radiation therapy on 09-19-23. Has not yet started hormone therapy but will see the medical oncologist next week. She had recent kidney ultrasound at [facility] results pending spinal cord: Osteoporosis/arthritis results pending Bilateral mammogram 01-21-24 BIRAD 2, personally reviewed complaining of back pain oncotype 22 caffeine:tea in the am nicotine: 1/2 PPD; smoking for 44 years chocolate: weekly BCP: 2 years hormones: 10 years not using them now Family history: Mother: Breast cancer in her 30s Maternal grandmother: Breast cancer Father: Colon cancer at 38 History: Menarche: 12 Pregnancies: 2 with one live and one miscarriage, she did not breast-feed, first full-term at 26 Menopause: In her 30s secondary to total abdominal hysterectomy for endometriosis; at 37 both ovaries removed Postoperative control pills: 2 year Hormones: 10 years surgical history: 1. 2. Cholecystectomy 3. ZAIRE/BSO 4. Lumbar fusion 5. right breast biopsy 6. bilateral carpel tunnel 7. left ankle 8. Left breast lumpectomy and sentinel node biopsy, reexcision of margins of le ft breast 9. port a cath placed and removed Past medical history: 1. Asthma 2. Fibromyalgia 3. Sleep apnea. 4. colitis 5. Hypertension 6. Anxiety/depression 7. Osteoarthritis 8. Peripheral neuropathy Smoking history: Smokin packs per week has decreased; alcohol: 3-4 times per week Drugs: Negative Review of systems: Constitutional: Negative HEENT: Left ear decreased hearing, blurred vision Lungs: Asthma, smoker Heart: Questionable murmur GI:colitis : see HPI Osseous skeletal: Arthritis Integument: WNL Psychiatric: Anxiety/depression Endocrine: Fatigue Hematologic: Patient takes aspirin Objective - Vital Signs Vital signs: Intake & Output 11/12/23 11/13/23 11/13/23 18:59 06:59 18:59 Weight 117.934 kg - Constitutional General appearance: Present: cooperative - EENT Eyes: Present: EOMI - Neck Neck: Present: normal ROM - Respiratory Respiratory: bilateral: CTA - Cardiovascular Heart sounds: normal: S1, S2 - Integumentary Integumentary: Present: normal turgor - Musculoskeletal Musculoskeletal Comment(s): uses a wheel chair - Psychiatric Psychiatric: Present: A&O x's 3, appropriate affect, intact judgment & insight - Additional findings Additional findings: Breast Exam: BRA: 44C Inspection: bilateral grade 2/3 ptosis; healed scar right breast from prior surgery palpation: right breast: Patient examined sitting in chair as it is difficult for her to climb to the exam table secondary to knee pain exam fibrocystic changes no dominant masses or nodules of concern well-healed scar from prior surgery Right axilla: No adenopathy of concern Left breast: Patient examined sitting in chair at approximately postradiation and postsurgical changes noted, in the lateral aspect near the periareolar region there is what appears to have been a bleb which has drained at least partially Left axilla: No adenopathy of concern Assessment and Plan Assessment: Impression: 1. Asthma 2. Fibromyalgia 3. Sleep apnea. 4. colitis 5. Hypertension 6. Anxiety/depression 7. Osteoarthritis 8. T2 N0 M0 G2 ER/MI positive HER-2/perla negative invasive ductal carcinoma left breast 9. Postradiation and postoperative changes left breast no evidence of recurrent cancer at this time 10. bleb superficial left breast which has spontaneously drained Stage IB left breast cancer Plan: Left breast ultrasound determine if there is any fluid which can be drained Bilateral mammogram due in January Follow-up after ultrasound of left breast Continue to follow with medical and radiation oncology CC: Dr. Nguyen Additional CC's: Rox Nguyen Objective - Vital Signs Vital signs: Vital Signs Temp 98 F 02/13/24 10:10 Pulse 62 02/13/24 10:10 Resp 16 02/13/24 10:10 BP 143/64 02/13/24 10:10 Pulse Ox 97 02/13/24 10:10 FiO2 Intake & Output 02/12/24 02/13/24 02/13/24 18:59 06:59 18:59 Weight 115.212 kg - Constitutional General appearance: Present: cooperative - EENT Eyes: Present: EOMI ENT: Present: hearing grossly normal - Neck Neck: Present: normal ROM - Respiratory Respiratory: bilateral: CTA - Cardiovascular Heart sounds: normal: S1, S2 - Integumentary Integumentary Comment(s): post radiation changes left breast Integumentary: Present: normal turgor - Musculoskeletal Musculoskeletal Comment(s): back pain making wlaking difficult today - Psychiatric Psychiatric: Present: A&O x's 3, appropriate affect, intact judgment & insight - Additional findings Additional findings: Breast Exam: BRA: 44C Inspection: bilateral grade 2/3 ptosis; healed scar right breast from prior surgery palpation: right breast: Patient examined sitting in chair as it is difficult for her to climb to the exam table secondary to knee pain exam fibrocystic changes no dominant masses or nodules of concern well-healed scar from prior surgery on last exam Right axilla: No adenopathy of concern Left breast: Patient examined sitting in chair at approximately postradiation and postsurgical changes noted, no discreate masses or seroma Left axilla: No adenopathy of concern Assessment and Plan Assessment: Impression: 1. Asthma 2. Fibromyalgia 3. Sleep apnea. 4. colitis 5. Hypertension 6. Anxiety/depression 7. Osteoarthritis 8. T2 N0 M0 G2 ER/MI positive HER-2/perla negative invasive ductal carcinoma left breast 9. Postradiation and postoperative changes left breast no evidence of recurrent cancer at this time 10. bleb superficial left breast which has spontaneously drained 11. drain of serom left breast 12-22-23 benign bilateral mammogram 01-21-24 BIRAD 2 Stage IB left breast cancer Plan: Bilateral mammogram due in January 2025 bone scan follow up after this continue annestrazole follow up with primary car regarding back pain Continue to follow with medical and radiation oncology CC: Dr. Nguyen
== END ==
LOC: WWCWWP 09:55
PROVIDERS: ATTEND Surgery
DX: R92.8 Other abnormal and inconclusive findings on diagnostic imaging of breast (principal); C50.912 Malignant neoplasm of unspecified site of left female breast; J45.909 Unspecified asthma, uncomplicated; M79.7 Fibromyalgia; G47.30 Sleep apnea, unspecified; N63.20 Unspecified lump in the left breast, unspecified quadrant; K52.9 Noninfective gastroenteritis and colitis, unspecified; I10 Essential (primary) hypertension; F41.9 Anxiety disorder, unspecified; F32.A Depression, unspecified; M19.90 Unspecified osteoarthritis, unspecified site; N64.89 Other specified disorders of breast; F17.210 Nicotine dependence, cigarettes, uncomplicated; Z17.0 Estrogen receptor positive status [ER+]; Z78.0 Asymptomatic menopausal state; Z80.3 Family history of malignant neoplasm of breast; Z90.722 Acquired absence of ovaries, bilateral; Z92.3 Personal history of irradiation; Z90.710 Acquired absence of both cervix and uterus; Z88.7 Allergy status to serum and vaccine; Z91.040 Latex allergy status; Z79.899 Other long term (current) drug therapy

== ENCOUNTER → 2024-02-23 | Outpatient (CLI) | payer BC ==
--- NOTE | 2024-02-24 11:52 | NM ---
EXAMINATION TYPE: NM bone scan whole body DATE OF EXAM: 02/23/2024 COMPARISON: NONE CLINICAL INDICATION: Female, 63 years old with history of Z85.3 metastatic disease; Delayed whole-body scanning was performed following the injection of 24.5 mCi Tc 99m MDP. Images acq uired 3 hours post injection. FINDINGS: Degenerative uptake about the shoulders, sternoclavicular joints, knees, ankles and mid feet as well as the right great toe. Degenerative uptake L1-L2. No intense uptake to suggest metastatic disease. IMPRESSION: No intense uptake to suggest metastatic disease.
== END | disposition home or self-care (01) ==
LOC: RADNMMAIN 10:43
PROVIDERS: ATTEND Surgery
DX: Z85.3 Personal history of malignant neoplasm of breast (principal)
CPT/HCPCS: 78306; A9503

== ENCOUNTER → 2024-09-23 | Outpatient (CLI) | payer BC ==
--- NOTE | 2024-09-23 12:20 | P.PN ---
Subjective Progress Note Date: 09/23/24 Progress Note Date: 02-13-24 left breast stage I invasive ductal cancer Ninoska is a 63-year-old female who is status post stereotactic core biopsy of the right breast in 2018 of approximately 4 sites. She was noted to have atypical lobular hyperplasia/lobular carcinoma in situ. She subsequently underwent a lumpectomy in the operating room on 08-25-18. At the time of the lumpectomy the right breast posterior/lateral lesion revealed focal lobular neoplasia involving complex sclerosing lesion/radial scar. Additionally an anterior excision revealed focal lobular neoplasia as well. 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 No invasive ductal carcinoma was identified. The patient in approximately July 2022 noted a lump in her left breast. She underwent a bilateral mammogram on 10-23-22, this did not show any lesions of concern in the right breast however a spiculated mass was noted in the left breast and ultrasound was recommended. The ultrasound was performed on [id number]. This revealed a 2.1 x 1.7 cm lesion for which core biopsy was recommended. This did reveal an invasive ductal carcinoma grade 2. This is ER/CT positive HER-2/perla negative. presentation of case at tumor board 12-10-22 it was recommended we proceed with surgery, to be followed by radiation, and then hormonal therapy She underwent a lumpectomy and SNB of the left breast on 12-31-22. Tumor 3.2 cm, original margins (+) reexcision done an dnew margins (-) 2 of 5 nodes involved with macromets. She was not able to tolerated a full course of chemotherapy but completed radiation therapy on 09-19-23. Has not yet started hormone therapy but will see the medical oncologist next week. She had recent kidney ultrasound at [facility] results pending spinal cord: Osteoporosis/arthritis results pending Bilateral mammogram 01-21-24 MICHAEL 2 personally reviewed complaining of back pain oncotype 22 09-23-24 The patient in approximately July 2022 noted a lump in her left breast. She underwent a bilateral mammogram on 10-23-22, this did not show any lesions of concern in the right breast however a spiculated mass was noted in the left breast and ultrasound was recommended. The ultrasound was performed on [id number]. This revealed a 2.1 x 1.7 cm lesion for which core biopsy was recommended. This did reveal an invasive ductal carcinoma grade 2. This is ER/CT positive HER-2/perla negative. presentation of case at tumor board 12-10-22 it was recommended we proceed with surgery, to be followed by radiation, and then hormonal therapy She underwent a lumpectomy and SNB of the left breast on 12-31-22. Tumor 3.2 cm, original margins (+) reexcision done an new margins (-) 2 of 5 nodes involved with macromets. She was not able to tolerated a full course of chemotherapy but completed radiation therapy on 09-19-23. She was started on anastrazole but complaining of joint pain so this was going to be held. note medical oncology reviewed 09-21-24; holding annestrazole for 1 month then follow up with Dr. Mcclellan; increased gabapentene dose She had recent kidney ultrasound at [facility] results pending spinal cord: Osteoporosis/arthritis, no mets on bone scan Bilateral mammogram 01-21-24 BIRAD 2 complaining of back pain hasn't changed caffeine:tea in the am nicotine: 1/2 PPD; smoking for 44 years chocolate: weekly BCP: 2 years hormones: 10 years not using them now Family history: Mother: Breast cancer in her 30s Maternal grandmother: Breast cancer Father: Colon cancer at 38 History: Menarche: 12 Pregnancies: 2 with one live and one miscarriage, she did not breast-feed, first full-term at 26 Menopause: In her 30s secondary to total abdominal hysterectomy for endometriosis; at 37 both ovaries removed Postoperative control pills: 2 year Hormones: 10 years surgical history: 1. 2. Cholecystectomy 3. ZAIRE/BSO 4. Lumbar fusion 5. right breast biopsy 6. bilateral carpel tunnel 7. left ankle 8. Left breast lumpectomy and sentinel node biopsy, reexcision of margins of le ft breast 9. port a cath placed and removed Past medical history: 1. Asthma 2. Fibromyalgia 3. Sleep apnea. 4. colitis 5. Hypertension 6. Anxiety/depression 7. Osteoarthritis 8. Peripheral neuropathy Smoking history: Smokin packs per week has decreased; alcohol: 3-4 times per week Drugs: Negative Review of systems: Constitutional: Negative HEENT: Left ear decreased hearing, blurred vision Lungs: Asthma, smoker Heart: Questionable murmur GI:colitis : see HPI Osseous skeletal: Arthritis Integument: WNL Psychiatric: Anxiety/depression Endocrine: Fatigue Hematologic: Patient takes aspirin Objective - Constitutional General appearance: Present: cooperative - EENT Eyes: Present: EOMI ENT: Present: hearing grossly normal - Respiratory Respiratory: bilateral: CTA - Cardiovascular Rhythm: regular Heart sounds: normal: S1, S2 - Integumentary Integumentary: Present: normal turgor - Musculoskeletal Musculoskeletal: Present: gait normal - Psychiatric Psychiatric: Present: A&O x's 3, appropriate affect, intact judgment & insight - Additional findings Additional findings: Breast Exam: BRA: 44C Inspection: bilateral grade 2/3 ptosis; healed scar right breast from prior gian darío palpation: right breast: Patient examined sitting in chair as it is difficult for her to climb to the exam table secondary to knee pain exam fibrocystic changes no dominant masses or nodules of concern well-healed scar from prior surgery on last exam Right axilla: No adenopathy of concern Left breast: Patient examined sitting in chair at approximately postradiation and postsurgical changes noted, no discreate masses or seroma Left axilla: No adenopathy of concern Assessment and Plan Assessment: Impression: 1. Asthma 2. Fibromyalgia 3. Sleep apnea. 4. colitis 5. Hypertension 6. Anxiety/depression 7. Osteoarthritis 8. T2 N0 M0 G2 ER/CT positive HER-2/perla negative invasive ductal carcinoma left breast 9. Postradiation and postoperative changes left breast no evidence of recurrent cancer at this time 10. bleb superficial left breast which has spontaneously drained 11. drain of serom left breast 12-22-23 benign bilateral mammogram 01-21-24 BIRAD 2 Stage IB left breast cancer Plan: Bilateral mammogram due in January 2025 bone scan done / no evidence of mets stopping annestrazole for 1 month to follow symptoms follow up with primary care regarding back pain obtain results of ultrasoud of kidney done in spring 2023 from [facility] Continue to follow with medical and radiation oncology CC: Dr. Morin
[2024-09-23 12:32] VITALS: BP 156/68; PULSE 64; RESP 18; TEMP 98.4
== END ==
LOC: WWCWWP 11:59
PROVIDERS: ATTEND Surgery
DX: R92.8 Other abnormal and inconclusive findings on diagnostic imaging of breast (principal); C50.912 Malignant neoplasm of unspecified site of left female breast; J45.909 Unspecified asthma, uncomplicated; M79.7 Fibromyalgia; I10 Essential (primary) hypertension; F32.A Depression, unspecified; F41.9 Anxiety disorder, unspecified; G47.30 Sleep apnea, unspecified; K52.9 Noninfective gastroenteritis and colitis, unspecified; M19.90 Unspecified osteoarthritis, unspecified site; F17.210 Nicotine dependence, cigarettes, uncomplicated; N64.89 Other specified disorders of breast; Z80.3 Family history of malignant neoplasm of breast; Z98.890 Other specified postprocedural states; Z17.0 Estrogen receptor positive status [ER+]; Z17.21 Progesterone receptor positive status; Z92.3 Personal history of irradiation; Z91.040 Latex allergy status; Z88.7 Allergy status to serum and vaccine; Z79.899 Other long term (current) drug therapy

== ENCOUNTER → 2025-01-24 | Outpatient (CLI) | payer BC ==
--- NOTE | 2025-01-31 08:24 | MM ---
Reason for Exam: Screening (asymptomatic). Last screening mammogram was performed 12 month(s) ago. Patient History: Menarche at age 13. First Full-Term at age 26. Left ovary removed at age 37. Right ovary removed at age 37. Hysterectomy at age 37. Postmenopausal. Breast cancer, left, age 61. Breast cancer, left, age 62. Previous chest radiation therapy at age 61. Previous chemotherapy at age 61. Estrogen for 10 years from age 37 until age 47. 12/22/2023, Benign US breast aspiration single LT on the left side. 02/24/2023, Benign US breast aspiration single LT on the left side. 12/31/2022, Lumpectomy on the Left side. 12/31/2022, Malignant MG pre op needle loc LT on the left side. 11/15/2022, Malignant US biopsy breast VAD LT on the left side. 08/25/2018, High risk Core Biopsy on the right side. 08/25/2018, High risk Core Biopsy on the right side. 08/25/2018, High risk Core Biopsy on the right side. 07/24/2018, Benign Core Biopsy on the right side. 07/24/2018, Benign Core Biopsy on the right side. 06/25/2018, High risk Core Biopsy on the right side. 06/25/2018, High risk Core Biopsy on the right side. Maternal grandmother had breast cancer, age 61. Paternal cousin had ovarian cancer. Paternal cousin had breast cancer. Mother had breast cancer, age 37. Prior Study Comparison: 11/01/2022 Left MG 3D work up w/cad LT - 2, [facility] . 11/15/2022 Left MG diagnostic mammo LT wo CAD., [facility]. 01/21/2024 Bilateral MG 3D diag mammo w/cad REBECCA, [facility]. Tissue Density: The breasts are heterogeneously dense, which may obscure small masses. Findings: Lumpectomy radiation therapy changes left breast. Lumpectomy changes right breast. No recurrent or residual mass. No suspicious microcalcifications present. Overall Assessment: Benign, BI-RAD 2 Management: Screening Mammogram of both breasts in 1 year. . Patient should continue monthly self-breast exams. A clinical breast exam by your physician is recommended on an annual basis. This exam should not preclude additional follow-up of suspicious palpable abnormalities. Note on Siobhan scores and lifetime risk: 1. A Siobhan score greater than 3% is considered moderate risk. If this is the case, consider specialist referral to assess eligibility for a risk reducing agent. 2. If overall lifetime risk for the development of breast cancer is 20% or higher, the patient may qualify for future screening with alternating mammogram and breast MRI. [facility], , 01/31/2025 8:20 AM. Electronically signed and approved by: Jonh Dan M.D. Radiologis
== END | disposition home or self-care (01) ==
LOC: RADMAMWWP 13:22
PROVIDERS: ATTEND Surgery
DX: Z12.31 Encounter for screening mammogram for malignant neoplasm of breast (principal); R92.333 Mammographic heterogeneous density, bilateral breasts; Z78.0 Asymptomatic menopausal state; Z80.3 Family history of malignant neoplasm of breast; Z85.3 Personal history of malignant neoplasm of breast
CPT/HCPCS: 77063; 77067

== ENCOUNTER → 2025-02-09 | Outpatient (CLI) | payer BC ==
[2025-02-09 11:54] VITALS: BP 165/80; PULSE 70; RESP 17; TEMP 98.8
--- NOTE | 2025-02-09 12:03 | P.PN ---
Subjective Progress Note Date: 02/09/25 Principal diagnosis: stage IB left breast IDC Subjective Progress Note Date: left breast stage I invasive ductal cancer Ninoska is a 64-year-old female who is status post stereotactic core biopsy of the right breast in 2018 of approximately 4 sites. She was noted to have atypical lobular hyperplasia/lobular carcinoma in situ. She subsequently underwent a lumpectomy in the operating room on 08-25-18. At the time of the lumpectomy the right breast posterior/lateral lesion revealed focal lobular neoplasia involving complex sclerosing lesion/radial scar. Additionally an anterior excision revealed focal lobular neoplasia as well. 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 No invasive ductal carcinoma was identified. The patient in approximately July 2022 noted a lump in her left breast. She underwent a bilateral mammogram on 10-23-22, this did not show any lesions of concern in the right breast however a spiculated mass was noted in the left breast and ultrasound was recommended. The ultrasound was performed on [id number]. This revealed a 2.1 x 1.7 cm lesion for which core biopsy was recommended. This did reveal an invasive ductal carcinoma grade 2. This is ER/AR positive HER-2/perla negative. presentation of case at tumor board 12-10-22 it was recommended we proceed with surgery, to be followed by radiation, and then hormonal therapy She underwent a lumpectomy and SNB of the left breast on 12-31-22. Tumor 3.2 cm, original margins (+) reexcision done and new margins (-) 2 of 5 nodes involved with macromets. She was not able to tolerated a full course of chemotherapy but completed radiation therapy on 09-19-23. She She had recent kidney ultrasound at [facility] results pending spinal cord: Osteoporosis/arthritis results pending Bilateral mammogram 01-24-25 BIRAD 2, personally reviewed complaining of back pain note Dr. Mcclellan medical oncology reviewed 11-10-24 recommended to restart annestrazole She is not complaining of any new lumps masses or nodules of concern in either breast oncotype 22 caffeine:tea in the am nicotine: 1/2 PPD; smoking for 44 years chocolate: weekly BCP: 2 years hormones: 10 years not using them now Family history: Mother: Breast cancer in her 30s Maternal grandmother: Breast cancer Father: Colon cancer at 38 History: Menarche: 12 Pregnancies: 2 with one live and one miscarriage, she did not breast-feed, first full-term at 26 Menopause: In her 30s secondary to total abdominal hysterectomy for endometriosis; at 37 both ovaries removed Postoperative control pills: 2 year Hormones: 10 years surgical history: 1. 2. Cholecystectomy 3. ZAIRE/BSO 4. Lumbar fusion 5. right breast biopsy 6. bilateral carpel tunnel 7. left ankle 8. Left breast lumpectomy and sentinel node biopsy, reexcision of margins of left breast 9. port a cath placed and removed Past medical history: 1. Asthma 2. Fibromyalgia 3. Sleep apnea. 4. colitis 5. Hypertension 6. Anxiety/depression 7. Osteoarthritis 8. Peripheral neuropathy Smoking history: Smokin packs per week has decreased; alcohol: 3-4 times per week Drugs: Negative Review of systems: Constitutional: Negative HEENT: Left ear decreased hearing, blurred vision Lungs: Asthma, smoker Heart: Questionable murmur GI:colitis : see HPI Osseous skeletal: Arthritis Integument: WNL Psychiatric: Anxiety/depression Endocrine: Fatigue Hematologic: Patient takes aspirin Objective - Vital Signs Vital signs: Intake & Output 02/08/25 02/09/25 02/09/25 18:59 06:59 18:59 Weight 117.934 kg - Constitutional General appearance: Present: cooperative - EENT Eyes: Present: EOMI ENT: Present: hearing grossly normal - Neck Neck: Present: normal ROM - Respiratory Respiratory: bilateral: CTA - Cardiovascular Heart sounds: normal: S1, S2 - Integumentary Integumentary: Present: normal turgor - Musculoskeletal Musculoskeletal: Present: gait normal - Psychiatric Psychiatric: Present: A&O x's 3, appropriate affect, intact judgment & insight - Additional findings Additional findings: Breast Exam: BRA: 44C Inspection: bilateral grade 2/3 ptosis; healed scar right breast from prior surgery, left breast lumpectomy and radiation scars palpation: right breast: Patient examined sitting in chair as it is difficult for her to climb to the exam table secondary to knee pain exam fibrocystic changes no dominant masses or nodules of concern well-healed scar from prior surgery on last exam Right axilla: No adenopathy of concern Left breast: Patient examined sitting in chair postradiation and postsurgical changes noted, no discreate masses or seroma Left axilla: No adenopathy of concern Assessment and Plan Assessment: Impression: 1. Asthma 2. Fibromyalgia 3. Sleep apnea. 4. colitis 5. Hypertension 6. Anxiety/depression 7. Osteoarthritis 8. T2 N0 M0 G2 ER/AR positive HER-2/perla negative invasive ductal carcinoma left breast 9. Postradiation and postoperative changes left breast no evidence of recurrent cancer at this time bilateral mammogram 01-24-25 BIRAD 2, personally interpreted Stage IB left breast cancer no recurrence Plan: Bilateral mammogram due in January 2026 continue annestrazole follow up with primary car regarding back pain Continue to follow with medical and radiation oncology CC: Dr. Nguyen
== END ==
LOC: WWCWWP 10:56
PROVIDERS: ATTEND Surgery
DX: N64.89 Other specified disorders of breast (principal); J45.909 Unspecified asthma, uncomplicated; M79.7 Fibromyalgia; G47.30 Sleep apnea, unspecified; K52.9 Noninfective gastroenteritis and colitis, unspecified; I10 Essential (primary) hypertension; F41.9 Anxiety disorder, unspecified; F32.A Depression, unspecified; M19.90 Unspecified osteoarthritis, unspecified site; I73.9 Peripheral vascular disease, unspecified; F17.210 Nicotine dependence, cigarettes, uncomplicated; Z91.040 Latex allergy status; Z91.048 Other nonmedicinal substance allergy status